=== PATIENT | female | born 1960 | race Caucasian/White ===

== ENCOUNTER 2019-01-05 22:36 | Emergency (ER) | payer MEDICAID, OTHER ==
[~2019-01-05] VITALS: Ht 162.6 cm; Wt 77.3 kg
[~2019-01-05 22:36] MED LIST: /HYDR1TAB PO; HYDR25T PO; LISI5TAB PO; MOM30SS FT; MOM30SS OR; SYNT25TA PO; ZEST20TA8 PO
[2019-01-05 22:37] VITALS: BP 157/78
[2019-01-05] MEDS ORDERED: VALA1TAB2 PO (23:47)
[2019-01-05] MEDS ORDERED: CLAR500T PO (23:47)
== END 2019-01-05 23:59 | disposition home or self-care (01) ==
LOC: M ED 22:36
DX: J06.9 Acute upper respiratory infection, unspecified (principal); B02.9 Zoster without complications; E07.9 Disorder of thyroid, unspecified; F17.210 Nicotine dependence, cigarettes, uncomplicated

== ENCOUNTER 2019-02-21 17:10 | Emergency (ER) | payer MEDICAID, OTHER ==
[~2019-02-21] VITALS: Ht 162.6 cm; Wt 77.3 kg
[~2019-02-21 17:10] MED LIST changes: +CLAR500T PO; +VALA1TAB2 PO
[2019-02-21 18:04] LABS: BASO # 0.1 10^3/uL (0.0-0.2); BASO % 0.7 % (0.0-1.0); EOS % 0.1 % (0.0-3.0); HEMATOCRIT 44.2 % (36.0-47.0); HEMOGLOBIN 15.6 g/dl (12.0-15.5); LYMPH # 2.1 10^3/uL (1.5-4.5); LYMPH % 28.7 % (24.0-44.0); MEAN CORPUSCULAR HEMOGLOBIN 30.8 pg (27.0-33.0); MEAN CORPUSCULAR HGB CONC 35.3 g/dl (32.0-36.5); MEAN CORPUSCULAR VOLUME 87.2 fl (80.0-96.0); MONO # 0.4 10^3/uL (0.0-0.8); NEUTROPHILS # 4.6 10^3/uL (1.8-7.7); NEUTROPHILS % 64.2 % (36.0-66.0); PLATELET COUNT, AUTOMATED 333 10^3/uL (150-450); RED BLOOD COUNT 5.07 10^6/uL (4.00-5.40); WHITE BLOOD COUNT 7.2 10^3/uL (4.0-10.0)
--- NOTE | 2019-02-21 18:15 | REP ---
Clinical: Wheezing. Technique: Complete sinus series (five views). Findings: Paranasal sinuses and mastoid air cells appear clear and without mucosal thickening or fluid level. Surrounding osseous structures are intact. Impression: Normal sinus radiograph series. Electronically Signed by Aydin Saucedo MD 02/21/2019 06:07 P
--- NOTE | 2019-02-21 18:17 | REP ---
Clinical: Shortness of breath with wheezing and rales. Technique: PA and lateral. Comparison: 12/01/2013. Findings: Mediastinum and cardiac silhouette are normal. Lung mix are clear. Lateral view suggests blunting of the posterior diaphragmatic angles raising the possibility of chronic change versus small pleural reaction. No pneumothorax. Skeletal structures intact. Impression: No focal consolidation or atelectasis. Cannot exclude small chronic versus acute pleural reaction. Electronically Signed by Aydin Saucedo MD 02/21/2019 06:09 P
[2019-02-21 18:26] LABS: ALBUMIN 4.3 GM/DL (3.2-5.2); ALT/SGPT 17 U/L (12-78); BILIRUBIN,TOTAL 0.5 MG/DL (0.2-1.0); BLOOD UREA NITROGEN 11 MG/DL (7-18); CALCIUM LEVEL 9.2 MG/DL (8.5-10.1); CARBON DIOXIDE LEVEL 24 MEQ/L (21-32); CHLORIDE LEVEL 104 MEQ/L (98-107); CK-MB VALUE MASS 1.7 NG/ML (<3.6); CPK CREATINE PHOSPHOKINASE 107 U/L (26-192); CREATININE FOR GFR 0.88 MG/DL (0.55-1.30); GLOMERULAR FILTRATION RATE > 60.0 (>51); GLUCOSE, FASTING 108 MG/DL (70-100); LIPASE 112 U/L (73-393); MB/CK RELATIVE INDEX 1.59 (< OR =4); POTASSIUM SERUM 3.7 MEQ/L (3.5-5.1); SODIUM LEVEL 135 MEQ/L (136-145); TOTAL PROTEIN 7.8 GM/DL (6.4-8.2); TROPONIN I < 0.02 NG/ML (< 0.10)
--- NOTE | 2019-02-21 18:58 | REP ---
Clinical: Hypertension . Comparison: 05/07/2011 . Findings: The ventricles, sulci, and cisterns are normal in position and appearance. Barker-white differentiation is maintained. No acute intracranial hemorrhage, mass/mass effect, pathology or trauma/injury. No evidence for acute infarction. No extra-axial fluid collection. Calvarium is intact. Paranasal sinuses and mastoid air cells are clear. Impression: Normal noncontrast head CT. No evidence for acute intracranial pathology or trauma/injury. Electronically Signed by Aydin Saucedo MD 02/21/2019 06:50 P
[2019-02-21] MEDS ORDERED: FLON1SPR NARES (19:27)
[2019-02-21] MEDS ORDERED: LISI-542 PO (19:27)
[2019-02-21 19:36] VITALS: BP 142/65
--- NOTE | 2019-02-22 13:31 | ED PDOC ---
Post-Departure Follow-Up certitifed letter sent to pt re formal reading of cxr see report. needs pcp fu. find out who pcp is and fax. if no pcp refer to [facility] and fax. Tressa Bales MD Feb 22, 2019 13:31
--- NOTE | 2019-02-22 21:53 | ECGEPIP ---
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
== END 2019-02-21 19:42 | disposition home or self-care (01) ==
LOC: M ED 17:10
DX: R03.0 Elevated blood-pressure reading, without diagnosis of hypertension (principal); R06.02 Shortness of breath; R51 Headache; M79.2 Neuralgia and neuritis, unspecified; J44.9 Chronic obstructive pulmonary disease, unspecified; Z79.899 Other long term (current) drug therapy; F17.210 Nicotine dependence, cigarettes, uncomplicated

== ENCOUNTER → 2019-03-10 | Outpatient (CLI) | payer OTHER ==
[~2019-03-10] MED LIST changes: +FLON1SPR NARES; +LISI-542 PO
--- NOTE | 2019-03-10 09:42 | REPMRS ---
Patient History The patient states she has not had a clinical breast exam in over a year. Family history of breast cancer in mother. Patient states she had a breast bx 2013-negative Digital Mammo Screening Bilat: March 10, 2019 - Exam #: [id number] Bilateral CC and MLO view(s) were taken. Technologist: Vaishali Le Technologist Prior study comparison: April 09, 2013, bilateral digital mammo screening bilat performed at [facility]. 2011, bilateral digital mammo screening bilat, performed at [facility]. FINDINGS: There are scattered fibroglandular densities. There is a needle biopsy marker clip projecting in the upper outer quadrant of the right breast unchanged. There has been no change in the appearance of the mammogram from the prior studies. There is a mild amount of scattered fibroglandular density which is fairly symmetric. There is no interval development of dominant mass, architectural distortion, or grouped microcalcification suggestive of malignancy. 3-D tomosynthesis shows no additional findings. Assessment: BI-RADS/ACR category 2 mammogram. Benign Findings. Recommendation Routine screening mammogram of both breasts in 1 year (for women over age 40). This patient's Lifetime Breast Cancer Risk is estimated at 13.0 %. This mammogram was interpreted with the aid of an FDA-approved computer-aided dectection system. Electronically Signed By: Trever Bose MD 03/10/19 0942
== END ==
LOC: M RAD 08:31
PROVIDERS: ATTEND Family Medicine
DX: Z12.31 Encounter for screening mammogram for malignant neoplasm of breast (principal)

== ENCOUNTER → 2019-03-25 | Outpatient (REF) | payer OTHER, MEDICAID ==
[2019-03-25 13:25] LABS: BASO # 0.1 10^3/uL (0.0-0.2); BASO % 0.7 % (0.0-1.0); HEMOGLOBIN 15.7 g/dl (12.0-15.5); LYMPH # 1.6 10^3/uL (1.5-4.5); LYMPH % 23.3 % (24.0-44.0); MEAN CORPUSCULAR HEMOGLOBIN 30.2 pg (27.0-33.0); MEAN CORPUSCULAR HGB CONC 34.1 g/dl (32.0-36.5); MEAN CORPUSCULAR VOLUME 88.5 fl (80.0-96.0); MONO # 0.4 10^3/uL (0.0-0.8); MONO % 6.1 % (0.0-5.0); NEUTROPHILS # 4.7 10^3/uL (1.8-7.7); NEUTROPHILS % 69.8 % (36.0-66.0); PLATELET COUNT, AUTOMATED 394 10^3/uL (150-450); WHITE BLOOD COUNT 6.7 10^3/uL (4.0-10.0)
[2019-03-25 13:49] LABS: ALT/SGPT 14 U/L (12-78); BILIRUBIN,TOTAL 0.3 MG/DL (0.2-1.0); BLOOD UREA NITROGEN 12 MG/DL (7-18); CALCIUM LEVEL 9.9 MG/DL (8.5-10.1); CARBON DIOXIDE LEVEL 28 MEQ/L (21-32); CHLORIDE LEVEL 103 MEQ/L (98-107); CHOLESTEROL LEVEL 288 MG/DL (<200); CHOLESTEROL RISK RATIO 8.228 (<5); CREATININE FOR GFR 0.89 MG/DL (0.55-1.30); FREE T4 0.83 NG/DL (0.76-1.46); GLOMERULAR FILTRATION RATE > 60.0 (>51); GLUCOSE, FASTING 95 MG/DL (70-100); HDL CHOLESTEROL 35 MG/DL (>40); LDL CHOLESTEROL 210 MG/DL (<100); NON-HDL-C 253 MG/DL; POTASSIUM SERUM 4.3 MEQ/L (3.5-5.1); SODIUM LEVEL 140 MEQ/L (136-145); TOTAL 25(OH) VITAMIN D 19.7 NG/ML (30.0-100.0); TOTAL PROTEIN 7.6 GM/DL (6.4-8.2); TRIGLYCERIDES LEVEL 213 MG/DL (<150)
[2019-03-25 14:36] LABS: HEMOGLOBIN A1c 6.1 %
[2019-03-27 00:06] LABS: Lyme Disease IgG/IgM Antibodie <0.91 ISR (0.00-0.90); Lyme Disease IgM Ab Quantitati <0.80 index (0.00-0.79)
== END ==
LOC: M LAB REF 12:17
PROVIDERS: ATTEND Family Medicine
DX: Z13.228 Encounter for screening for other metabolic disorders (principal)

== ENCOUNTER → 2019-06-24 | Outpatient (REF) | payer OTHER, MEDICAID ==
[2019-06-24 13:08] LABS: ALBUMIN 4.2 GM/DL (3.2-5.2); ALT/SGPT 18 U/L (12-78); BILIRUBIN,TOTAL 0.6 MG/DL (0.2-1.0); BLOOD UREA NITROGEN 10 MG/DL (7-18); CALCIUM LEVEL 9.9 MG/DL (8.5-10.1); CARBON DIOXIDE LEVEL 31 MEQ/L (21-32); CHLORIDE LEVEL 102 MEQ/L (98-107); CHOLESTEROL LEVEL 221 MG/DL (<200); CHOLESTEROL RISK RATIO 6.314 (<5); CREATININE FOR GFR 0.88 MG/DL (0.55-1.30); GLOMERULAR FILTRATION RATE > 60.0 (>51); GLUCOSE, FASTING 93 MG/DL (70-100); HDL CHOLESTEROL 35 MG/DL (>40); LDL CHOLESTEROL 144 MG/DL (<100); NON-HDL-C 186 MG/DL; POTASSIUM SERUM 4.8 MEQ/L (3.5-5.1); SODIUM LEVEL 136 MEQ/L (136-145); TOTAL PROTEIN 7.8 GM/DL (6.4-8.2); TRIGLYCERIDES LEVEL 210 MG/DL (<150)
[2019-06-24 14:34] LABS: HEMOGLOBIN A1c 5.6 %
== END ==
LOC: M LAB REF 12:18
PROVIDERS: ATTEND Family Medicine
DX: E78.5 Hyperlipidemia, unspecified (principal); R73.03 Prediabetes

== ENCOUNTER → 2019-07-26 | Outpatient (CLI) | payer OTHER ==
--- NOTE | 2019-07-26 11:04 | REP ---
Clinical: Lung screening. History smoking. Comparison: 05/07/2011 Technique: Axial low-dose noncontrast images from the thoracic inlet to the upper abdomen using lung screening technique. Findings: There is a 3 cm left lower lobe mass with spiculated margination most consistent with malignancy. No effusion. Partially calcified mediastinal lymph nodes are suspected. Impression: 3.3 cm left lower lobe spiculated mass lesion consistent with neoplasm. Partially calcified mediastinal adenopathy. Electronically Signed by Aydin Saucedo MD 07/26/2019 10:55 A
== END ==
LOC: M RAD 10:04
PROVIDERS: ATTEND Family Medicine
DX: Z12.2 Encounter for screening for malignant neoplasm of respiratory organs (principal); Z87.891 Personal history of nicotine dependence

== ENCOUNTER → 2019-09-10 | Outpatient (CLI) | payer OTHER ==
[~2019-09-10] MED LIST changes: +ATOR1TAB21 PO; +CETI10TA4 PO; +FLUT1INH2 INH; +IBUP200T45 PO; +LISI10TA4 PO; +NICOINH INH; +PARO20TA3 PO; +PROAAER10 INH; -VALA1TAB2 PO; +VALA1TAB64 PO; +VENTAER INH
--- NOTE | 2019-09-10 20:58 | REP ---
CT chest without contrast: History: Solitary pulmonary nodule. Comparison chest CT study is from July 26, 2019. This showed a spiculated 3.3 cm mass in the left lower lobe. CT findings: The CT study confirms the presence of a spiculated mass in a peribronchovascular position in the left lower lobe. This measures 3.5 by 2.7 by 1.9 cm. It is unchanged in appearance from July 26, 2019. There is a tiny subpleural left lower lobe nodule 4 mm in diameter in the lateral pleural angle visible on page 87 of 115 in series 201 of today's study. This is unchanged. There is a small pleural-based nodule in the right lateral pleural angle 4 mm in diameter, also unchanged from prior studies. No other pulmonary nodule is appreciated. There are mild emphysematous changes in the apices bilaterally. Normal adrenal glands are seen. The visualized upper abdominal structures are unremarkable. Vascular calcifications noted. There are calcified mediastinal lymph nodes in the central mediastinum. The largest of these is a precarinal node measuring 1.5 by 2.3 cm. There is left coronary artery vascular calcification. No bony destructive lesion. Impression: Suspicious spiculated mass in the left lower lobe again seen. There are multiple mediastinal lymph nodes which are calcified of uncertain significance. Bilateral upper lobe emphysematous changes are seen. Electronically Signed by Javier Bose MD 09/11/2019 08:00 A
== END ==
LOC: M RAD 14:07
PROVIDERS: ATTEND Internal Medicine Pulmonary Disease
DX: R91.1 Solitary pulmonary nodule (principal); R91.8 Other nonspecific abnormal finding of lung field

== ENCOUNTER → 2019-10-02 | Outpatient (CLI) | payer OTHER ==
[~2019-10-02] MED LIST changes: -CLAR500T PO; +CLAR500T97 PO; +VALA1TAB5 PO; -VALA1TAB64 PO
[2019-10-02 11:40] LABS: HEMATOCRIT 49.4 % (36.0-47.0); MEAN CORPUSCULAR HGB CONC 32.4 g/dl (32.0-36.5); MEAN CORPUSCULAR VOLUME 92.7 fl (80.0-96.0); PLATELET COUNT, AUTOMATED 386 10^3/uL (150-450); RED BLOOD COUNT 5.33 10^6/uL (4.00-5.40); WHITE BLOOD COUNT 6.9 10^3/uL (4.0-10.0)
[2019-10-02 12:07] LABS: BLOOD UREA NITROGEN 7 MG/DL (7-18); CALCIUM LEVEL 9.4 MG/DL (8.5-10.1); CARBON DIOXIDE LEVEL 29 MEQ/L (21-32); CHLORIDE LEVEL 105 MEQ/L (98-107); CREATININE FOR GFR 0.99 MG/DL (0.55-1.30); GLOMERULAR FILTRATION RATE > 60.0 (>51); GLUCOSE, FASTING 91 MG/DL (70-100); POTASSIUM SERUM 3.9 MEQ/L (3.5-5.1); SODIUM LEVEL 141 MEQ/L (136-145)
== END ==
LOC: M LAB 10:31
PROVIDERS: ATTEND Physician Assistant
DX: R94.31 Abnormal electrocardiogram [ECG] [EKG] (principal); R07.9 Chest pain, unspecified

== ENCOUNTER 2019-11-16 06:13 | Day surgery (SDC) | payer OTHER ==
[~2019-11-16] VITALS: Ht 162.6 cm; Wt 83.0 kg
[~2019-11-16 06:13] MED LIST changes: +ASPI81TA26 PO
[2019-11-16] MEDS ORDERED: LR 1,000 ML IV ONE (07:00)
[2019-11-16] MEDS ORDERED: propofoL 200 MG/20 ML VIAL As Ordered ONE (07:15)
[2019-11-16] MEDS ORDERED: LIDOCAINE 2% INJ 100 MG/5 ML SDV (FOR ANES.) As Ordered ONE (07:16)
[2019-11-16] MEDS ORDERED: ROCURONIUM BROMIDE 50 MG/5 ML VIAL As Ordered ONE (07:16)
[2019-11-16] MEDS ORDERED: ONDANSETRON 4MG/2ML VIAL (J2405) As Ordered ONE (07:17)
[2019-11-16] MEDS ORDERED: MIDAZOLAM INJ 2 MG/2 ML VIAL (J2250) As Ordered ONE (07:17)
[2019-11-16] MEDS ORDERED: dexameTHASONE 4 MG/ML 1ML VIAL (J1100) As Ordered ONE (07:17)
[2019-11-16] MEDS ORDERED: fentaNYL 100 MCG/2 ML INJECTION (J3010) As Ordered ONE ×2 (07:17→08:36)
[2019-11-16] MEDS ORDERED: LIDOCAINE 4% TOPICAL SOLN 50 ML BTL As Ordered ONE (07:19)
[2019-11-16] MEDS ORDERED: THROMBIN SOLN 20,000 UNITS KIT As Ordered ONE (07:19)
[2019-11-16] MEDS ORDERED: EPINEPHrine 1MG/10ML SYRINGE 1.5IN As Ordered ONE (07:19)
[2019-11-16] MEDS ORDERED: LIDOCAINE VISCOUS 2% SOLN 15ML UDC As Ordered ONE (07:19)
[2019-11-16] MEDS ORDERED: LIDOCAINE 1% SDV INJ 30 ML VIAL As Ordered ONE (07:19)
[2019-11-16] MEDS ORDERED: CETACAINE SPRAY 5GM As Ordered ONE (07:41)
[2019-11-16] MEDS ORDERED: SCOPOLAMINE 1MG TRANSDERMAL PATCH As Ordered ONE (07:53)
[2019-11-16] MEDS ORDERED: SCOPOLAMINE 1MG TRANSDERMAL PATCH TOP ONE (08:00)
[2019-11-16] MEDS ORDERED: SUGAMMADEX SODIUM 500 MG/5 ML VIAL (BRIDION) As Ordered ONE (08:23)
[2019-11-16] MEDS ORDERED: ACETAMINOPHEN 1000MG 100ML IV BTL (OFIRMEV) (J0131 PER 10MG) As Ordered ONE (08:23)
--- NOTE | 2019-11-16 09:24 | RO ---
DATE OF PROCEDURE: 11/16/2019 PREOPERATIVE DIAGNOSIS: Abnormal chest x-ray. POSTOPERATIVE DIAGNOSIS: Abnormal chest x-ray with chronic bronchitis and extrinsic compression of the left lower lobe subsegments. PROCEDURE: Fiberoptic bronchoscopy with endobronchial ultrasound with washes, brushes, biopsies and photos. SURGEON: Dr. Stas Mcneill LICENSED DISPENSING OPTICIAN: ANESTHESIA: General. CONSENT: Informed consent was obtained prior to the procedure. OPERATIVE FINDINGS: 1. Diffuse changes of chronic bronchitis. 2. Significant extrinsic compression of the posterior basilar segment of left lower lobe. DESCRIPTION OF PROCEDURE: After the patient identified and the above anesthesia given, the fiberoptic bronchoscope was easily passed via the existing endotracheal tube. It was found to be in good position. The right lung was entered first. All segments and sub segments of upper, middle and lower lobe easily identified and generally widely patent. Diffuse changes of chronic bronchitis were noted. The left lung was then entered. Upper and lower lobes easily identified. Proximal take off widely patent. Diffuse changes of chronic bronchitis were noted. In two of the sub segments of the left lower lobe, significant extrinsic compression was identified that was somewhat dynamic in nature. Due to this finding, the initial plan was for navigational bronchoscopy, but this was abandoned. Washes, brushes and biopsies of the area were taken. The endobronchial ultrasound was then employed. No good window for needle biopsy was able to be obtained via the use of that scope. That scope was then changed out to the standard bronchoscope. Again, multiple biopsies of the area in question were taken. Some bleeding was encountered that was easily controlled with topical saline lavage and topical thrombin. When adequate hemostasis was achieved, the scope was then withdrawn and the procedure terminated. Care was then turned over to anesthesia for extubation. No immediate complications of my portion of the procedure were identified.
[2019-11-16] MEDS ORDERED: LR 1,000 ML IV SCH (09:30)
[2019-11-16] MEDS ORDERED: MEPERIDINE INJ 25 MG/ML VIAL (J2175) IV PRN (09:30)
[2019-11-16] MEDS ORDERED: fentaNYL 100 MCG/2 ML INJECTION (J3010) IV PRN (09:30)
[2019-11-16] MEDS ORDERED: PERCOCET 5MG/325MG TAB PO PRN (09:30)
[2019-11-16] MEDS ORDERED: ONDANSETRON 4MG/2ML VIAL (J2405) IV PRN (09:30)
[2019-11-16] MEDS ORDERED: METOCLOPRAMIDE INJ 10MG/2ML VIAL (J2765) IV PRN (09:30)
[2019-11-16 10:25] VITALS: BP 134/65
== END 2019-11-16 10:25 | disposition home or self-care (01) ==
LOC: M SDC 06:13
PROVIDERS: ATTEND Internal Medicine Pulmonary Disease
DX: R91.1 Solitary pulmonary nodule (principal); J98.4 Other disorders of lung; J42 Unspecified chronic bronchitis; J45.30 Mild persistent asthma, uncomplicated; F17.218 Nicotine dependence, cigarettes, with other nicotine-induced disorders; I10 Essential (primary) hypertension; E78.5 Hyperlipidemia, unspecified; E03.9 Hypothyroidism, unspecified; F41.9 Anxiety disorder, unspecified; R53.83 Other fatigue; Z79.51 Long term (current) use of inhaled steroids; Z79.899 Other long term (current) drug therapy
CPT/HCPCS: 31623; 31624; 31652; 87070; 87116; 87205; 87206; 88104; 88305; J0131; J1100; J2250; J2405; J3010

== ENCOUNTER → 2019-12-07 | Outpatient (CLI) | payer OTHER ==
--- NOTE | 2019-12-09 12:04 | REP ---
PET/CT: HISTORY: Diagnosing lung carcinoma. COMPARISONS: Comparison CT study of the chest September 10, 2019. TECHNIQUE: 52 minutes following the intravenous injection of a 8.32 mCi dose of F-18 FDG, three-dimensional PET scintigraphy is acquired from the skull base to the proximal thighs. Triplanar noncontrast CT scanning is acquired through the same anatomic range for attenuation correction, and image registration with scan parameters optimized to minimize radiation exposure to the patient. PET scintigraphy and CT datasets were fused and displayed on a workstation with multiplanar and projection display capability. PET/CT FINDINGS: The patient's known spiculated left lower lobe lung mass is hypermetabolic. Maximum standard uptake value within this lesion is 10.42. There is an infiltrative opacity in the left lower lobe below the mass lesion suggesting postobstructive change. There is some hypermetabolic uptake in this presumed postobstructive parenchymal opacity, maximum standard uptake value 5.15. No other abnormal hypermetabolic uptake is seen in the pulmonary parenchyma. The previously noted calcified mediastinal adenopathy is also hypermetabolic. Maximum standard uptake value within these precarinal, subcarinal and left central hilar calcific adenopathy ranges from 4.29 to 6.36. Since a granulomatous disease such as sarcoidosis and show hypermetabolic uptake on PET/CT, the significance of this uptake in these calcified mediastinal lymph nodes is difficult to evaluate. There is no abnormal adrenal hypermetabolic uptake. No abnormal skeletal uptake is seen. No abnormal uptake is seen below the diaphragms. There is some scattered skeletal muscle hypermetabolic uptake which is felt to be normal variant. There is one possible focus of karthik uptake in the left neck in a normal-sized lymph node in the left supraclavicular region just posterior and lateral to the internal jugular vein. Maximum standard uptake value here is 4.44. This lymph node measures only 6 mm in short axis dimension. This is of uncertain significance as well. IMPRESSION: The known spiculated left lower lobe lung mass is hypermetabolic. There is hypermetabolic although calcific left central hilar, pretracheal and paratracheal adenopathy. These lymph nodes are difficult to evaluate since granulomatous disease such as sarcoidosis can show increased uptake on PET scintigraphy . There is an equivocal karthik focus in the left neck. Electronically Signed by Javier Bose MD 12/09/2019:13 P
== END ==
LOC: M PLARAD 08:24
PROVIDERS: ATTEND Internal Medicine Pulmonary Disease
DX: R91.1 Solitary pulmonary nodule (principal)
CPT/HCPCS: 78815; A9552

== ENCOUNTER → 2019-12-30 | Outpatient (CLI) | payer OTHER ==
[~2019-12-30] MED LIST changes: +LIDOCAINE 1% MDV 20ML VIAL As Ordered ONE; +MIDAZOLAM INJ 2MG/2ML VIAL (J2250 PER 1MG) As Ordered ONE; +PARO40TA2 PO; +VALI5TAB PO
[2019-12-30 10:29] LABS: PLATELET COUNT, AUTOMATED 322 10^3/uL (150-450)
[2019-12-30 10:41] LABS: INR 0.98; PROTHROMBIN TIME 12.7 SECONDS (11.8-14.0)
[2019-12-30 10:42] LABS: PARTIAL THROMBOPLASTIN TIME 27.4 SECONDS (25.0-38.4)
--- NOTE | 2019-12-30 12:15 | REP ---
CHEST, SINGLE VIEW: Single view of the chest is performed status post left lung biopsy. There is no significant pneumothorax. Left lower lobe mass is seen. Followup will be performed. Electronically Signed by Jimbo Barker MD 12/30/2019 12:57 P
[2019-12-30 13:36] VITALS: BP 128/71
--- NOTE | 2019-12-30 15:14 | REP ---
CHEST, SINGLE VIEW: Single view of the chest is performed 2 hours following left lung biopsy. There is no pneumothorax. Left lower lobe mass is again seen. There are mild bibasilar atelectatic changes. IMPRESSION: No pneumothorax status post lung biopsy. Electronically Signed by Jimbo Barker MD 12/30/2019 03:42 P
--- NOTE | 2019-12-30 15:49 | REP ---
CT-GUIDED LEFT LOWER LOBE LUNG BIOPSY The procedure was performed under the direct supervision of Dr. barker. The patient has a history of a left lower lobe lung mass seen on a previous CT scan dated 09/10/2019. This was shown to be hypermetabolic on a PET scan performed on 12/07/2019. The risks and benefits of the procedure were explained to the patient and informed consent was obtained. The left lower lobe lung mass was localized using CT guidance. The skin was prepped and draped in a sterile fashion. 1% lidocaine was used as a local anesthetic. Using CT guidance a 19/20 gauge coaxial needle biopsy system was inserted and advanced into the mass. Five core biopsy samples were obtained. Images obtained after biopsy show a small left pneumothorax. As much air as possible was aspirated from the pleural space. Follow-up images show improvement of the left pneumothorax. Chest x-ray performed immediately after this procedure shows no evidence of pneumothorax. Chest x-ray performed 2 hours later in shows no evidence of pneumothorax. The patient tolerated the procedure well. After the appropriate amount of monitored convalescence the patient was discharged from the department. Electronically Signed by ANGELA Laws 12/30/2019 01:48 P Electronically Signed by Jimbo Barker MD 12/30/2019 03:40 P
== END ==
LOC: M IRPRO 09:43
PROVIDERS: ATTEND Thoracic Surgery (Cardiothoracic Vascular Surgery)
DX: C34.32 Malignant neoplasm of lower lobe, left bronchus or lung (principal); J45.30 Mild persistent asthma, uncomplicated; F17.218 Nicotine dependence, cigarettes, with other nicotine-induced disorders; I10 Essential (primary) hypertension
CPT/HCPCS: 32405; 36415; 77012; 85027; 85610; 85730; 88305; J2250

== ENCOUNTER → 2020-01-20 | Outpatient (CLI) | payer OTHER ==
[~2020-01-20] MED LIST changes: -LIDOCAINE 1% MDV 20ML VIAL As Ordered ONE; -MIDAZOLAM INJ 2MG/2ML VIAL (J2250 PER 1MG) As Ordered ONE
--- NOTE | 2020-01-26 11:09 | RADONC ---
RADIATION ONCOLOGY CONSULTATION NOTE DATE: 01/20/2020 This is a telemedicine visit. The patient was informed of the risks including security breech, technological failure, inability to perform a comprehensive physical exam which could delay or prevent an accurate diagnosis, and potential complications from treatment decisions rendered over a telemedicine platform. The patient understands and consented to the use of telehealth services phone only. CHART NUMBER: [id number] DIAGNOSIS: Left lower lobe adenocarcinoma. STAGE: IV A, T2, N3, M1b, grade 3. ECOG PERFORMANCE STATUS: 0 CONSULTATION NOTE: Ms. Flores is a very pleasant 59-year-old female who is presenting to us today for telephone consultation regarding the possibility of external beam radiation therapy for her left lower lobe poorly differentiated adenocarcinoma. HISTORY OF PRESENT ILLNESS: The patient was in her usual state of health until low-dose lung cancer screening CT done in July 2019 revealed a 2.3 cm mass in the left lower lobe. She was subsequently referred to pulmonary, where a CT-guided biopsy was undertaken on 11/17/2019. This was nondiagnostic. On 12/30/2019, a repeat biopsy was undertaken and pathology revealed a poorly differentiated adenocarcinoma of the left lower lobe of the lung. A PET/CT scan was done on 12/07/2019. This revealed marked hypermetabolic uptake in the left lower lobe lung mass with an SUV value of 10.42. It was noted to be mediastinal adenopathy, which was also hypermetabolic in the precarinal, subcarinal, left central hilar region as well measuring between 4.29 SUV to 6.36. The lymph nodes were calcified in the mediastinal region however, and it is not absolutely clear whether or not this could be due to granulomatous disease. There was noted to be karthik uptake in the left neck in the supraclavicular/cervical region as well. In addition, there was uptake visible in the right first rib but this was not correlated with any visible destruction on CT scan image. The patient was seen by Dr. White for what was thought to be a stage III B versus stage IV poorly differentiated adenocarcinoma. He clearly stated that she was not a surgical candidate, which is clear, and therefore has referred her for possible radiation therapy and systemic therapy. Differential lung scan was undertaken and showed normal spirometry lung volumes and DLCO. The patient went for a second opinion to [facility] and it was recommended at that time to undertake ultrasound-guided biopsy of the supraclavicular lymph node and if that was nondiagnostic to perform EBUS guided biopsy of the mediastinal nodes since the mediastinal nodes were calcified and the uptake on PET could be due to an inflammatory condition. The patient is now here for further discussion. PAST MEDICAL HISTORY: The patient's past medical history is positive for prediabetes. She has a history of asthma and CAD. The patient had a hernia repair, a hysterectomy and ovarian tumor, and sections. ALLERGIES: The patient has NO KNOWN DRUG ALLERGIES. SOCIAL HISTORY: The patient has smoked one pack of cigarettes per day for 45 years. She does not abuse alcohol. FAMILY HISTORY: The patient's family history is positive for a mother with breast cancer and a paternal grandfather with lung cancer. REVIEW OF SYSTEMS: The patient's review of systems is positive for some shortness of breath and occasional cough and anxiety. It is otherwise noncontributory. Denies nausea, vomiting, fevers, chills, night sweats, diplopia, headaches, anxiety or depression, anorexia, weight loss, visual disturbances, chest pain, urinary or bowel difficulties, bone pain, or neurological problems. PHYSICAL EXAMINATION: Physical exam was deferred at this time as per COVID-19 precautions. This was a telephone consultation. ASSESSMENT: I had a lengthy discussion with this patient with regards to the possibilities of external beam radiation therapy as a therapeutic option. We discussed logistics of treatment planning, simulation and subsequent fractionated daily radiation treatments. I have reviewed the recommendations from the multidisciplinary thoracic oncology program (TTOP) and I do agree that it may be thurston to undertake biopsy either of the supraclavicular node region or the mediastinal nodes. This would be especially true as it would change our treatment mix and the toxicity of treatment significantly. If the lymph nodes are positive, then a radiation field can be undertaken, which would also incorporate the rib area. Since there is no obvious destruction in the rib region, I would not include that or treat that separately if we are dealing simply with stage T2 disease. I have personally reviewed the PET scan and do believe even if we are dealing with N3 disease we should be able to incorporate most of this area in treatment field while not compromising her overall breathing in the future too greatly. There appears to be no distant metastatic disease and therefore, it would be reasonable to incorporate all these areas in one field. I have set the patient up for referral for interventional radiology to discuss a supraclavicular lymph node biopsy. In addition, she has been set up to be seen by medical oncology as this would require concomitant systemic therapy with radiation therapy. We are setting her up for CT simulation and initiation of treatment planning as well. Further discussion and recommendations will be made pending the above. We will coordinate her care with medical oncology. Thank you for allowing us to participate in the care of this very pleasant woman. If I could be of any further assistance or provide you any information, please free to contact me anytime. As always, warm regards. cc: MD Kameron Kan MD Lawrence G. Kramer, MD Birendra Sah, MD, [facility]
== END ==
LOC: M ONCR 09:05
PROVIDERS: ATTEND Radiology Radiation Oncology
DX: C34.32 Malignant neoplasm of lower lobe, left bronchus or lung (principal)

== ENCOUNTER 2020-01-25 13:54 | Outpatient (RCR) | payer OTHER ==
--- NOTE | 2020-01-31 12:46 | RADONC ---
RADIATION ONCOLOGY SIMULATION NOTE DATE: 01/25/2020 CHART #: [id number] Ms. Flores was taken to the CT scan for CT simulation of her lung and lymph node mix. CT was accomplished without difficulty or discomfort. Radiation treatment planning is underway and radiation treatments will begin subsequently. An immobilization device was created without difficulty or discomfort. It will be used throughout the course of treatment. I was physically present throughout the course of CT simulation. I have ordered a needle biopsy of her supraclavicular lymph node as per Dr. White's recommendation. Although I feel somewhat certain that the lymph nodes are positive as is that rib, there is no evidence of erosive lesion on CT scan of the rib and she has a long history of chronic lung illnesses. For the sake of thoroughness however it would be good to pathologically confirm the presence of lymphadenopathy. Medical oncology consultation is scheduled to follow.
--- NOTE | 2020-02-08 18:44 | RADONC ---
RADIATION ONCOLOGY PROGRESS NOTE DATE: 02/05/2020 CHART NUMBER: [id number] DIAGNOSIS: Left lower lobe adenocarcinoma. STAGE: IV A, T2, N3, M1b, grade 3. ECOG PERFORMANCE STATUS: 0. PROGRESS NOTE: Ms. Flores presented to me with what appears to be stage IV A disease for discussion of radiation to all known sites of disease, including her primary left lower lobe lung cancer, her mediastinal lymph nodes, her supraclavicular and cervical lymph nodes and her contralateral possible rib metastases. Following her initial consultation, a biopsy was undertaken of her left supraclavicular region confirming positive malignancy. This makes her a minimum of a stage III B, more likely a stage IV A. We undertook simulation and treatment planning. In order to incorporate all areas of disease for this very pleasant and unfortunate woman, a prohibitive amount of lung and heart would be damaged. Indeed, she would lose more than 50% of her lung capacity. Of more concern, however, the majority of her heart would be in high-dose radiation field past tolerance limits. In light of the fact that she has a very advanced stage of disease, I think the benefits of treatment are minimal compared to the risks. In light of this work, I have spoken with the patient's medical oncologist, Dr. Wero Callaway MD, to discuss this case. We have decided it would be prudent to treat this patient initially with systemic therapy and then reevaluate for possible radiation therapy in the future if needed. I called the patient and spoke with her directly to let her know that at this time radiation most likely would be more detrimental to her than beneficial. I let her know that we have a plan for systemic therapy and indeed the patient is scheduled to see Dr. Callaway next week. In light of this, I am discharging this patient from my followup at this time. If radiation is indicated in the future, she will be referred back to this department.
== END 2020-02-22 ==
LOC: M ONCR 13:54
PROVIDERS: ATTEND Radiology Radiation Oncology
DX: C34.32 Malignant neoplasm of lower lobe, left bronchus or lung (principal)

== ENCOUNTER → 2020-02-02 | Outpatient (CLI) | payer OTHER ==
[~2020-02-02] MED LIST changes: +LIDOCAINE 1% MDV 20ML VIAL As Ordered ONE
[2020-02-02 14:16] VITALS: BP 176/81
--- NOTE | 2020-02-02 21:45 | REP ---
ULTRASOUND-GUIDED LEFT SUPRACLAVICULAR LYMPH NODE BIOPSY The procedure was performed under the direct supervision of Dr. Barker. The patient has a history of A possible focus of karthik uptake in the left neck in a normal-sized lymph node in the left supraclavicular region seen on a previous PET scan dated 12/07/2019. The risks and benefits of the procedure were explained to the patient and informed consent was obtained. The left supraclavicular lymph node was localized using ultrasound guidance. The skin was prepped and draped in a sterile fashion. 1% lidocaine was used as a local anesthetic. Using ultrasound guidance four fine-needle aspirations were obtained using 25 gauge needles. The patient tolerated the procedure well and there were no immediate complications. After the appropriate amount of monitored convalescence the patient was discharged from the department. Electronically Signed by ANGELA Laws 02/02/2020 03:45 P Electronically Signed by Jimbo Barker MD 02/02/2020 09:37 P
== END ==
LOC: M IRPRO 12:51
PROVIDERS: ATTEND Radiology Radiation Oncology
DX: C77.1 Secondary and unspecified malignant neoplasm of intrathoracic lymph nodes (principal); C34.82 Malignant neoplasm of overlapping sites of left bronchus and lung

== ENCOUNTER → 2020-04-26 | Outpatient (CLI) | payer OTHER ==
[~2020-04-26] MED LIST changes: -LIDOCAINE 1% MDV 20ML VIAL As Ordered ONE
--- NOTE | 2020-05-16 12:20 | ECGEPIP ---
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
== END ==
LOC: M EKG 11:52
PROVIDERS: ATTEND Specialist
DX: C34.92 Malignant neoplasm of unspecified part of left bronchus or lung (principal)

== ENCOUNTER → 2020-09-04 | Outpatient (CLI) | payer OTHER ==
[~2020-09-04] MED LIST changes: +ATOR40TA75 PO; +ISOVUE-370 76% 100ML VIAL As Ordered ONE
--- NOTE | 2020-09-04 14:31 | REP ---
INDICATION: NSCLC COMPARISON: 09/10/2019 TECHNIQUE: Axial contrast enhanced images from the thoracic inlet to the upper abdomen with coronal and sagittal reformations using 75 ml Isovue 370 intravenous contrast material. This CT examination was performed using the following dose reduction techniques: Automated exposure control, adjustment of mA and/or kv according to the patient's size, and use of iterative reconstruction technique. FINDINGS: The previously identified left lower lobe mass may now possibly measure approximately 10 mm and demonstrate adjacent linear scarring (mass previously measuring greater than 3.4 cm diameter at the same level). Partially calcified mediastinal lymph nodes have also decreased in size to relatively normal appearance. The remainder lung mix demonstrate chronic stable emphysematous changes with bronchiectasis and minimal scattered scarring. No further new acute suspicious consolidation nodule or mass. No effusion. No pneumothorax. Further evaluation of the mediastinum demonstrates stable appearance to the thoracic aorta, pulmonary vasculature and heart/pericardium. No aortic aneurysm or dissection. No cardiomegaly or significant pericardial effusion. Surrounding osseous structures demonstrate age-related changes without acute osseous abnormality. Limited upper abdomen demonstrates normal bilateral adrenal glands. IMPRESSION: 1. Left lower lobe mass has significantly regressed and there now appears to be a small [address] its place with adjacent linear scarring. Previously noted enlarged partially calcified mediastinal lymph nodes have also regressed to normal size. 2. No new acute mediastinal or pleuroparenchymal process appreciated. <Electronically signed by Aydin Saucedo > 09/04/20 [id number]
== END ==
LOC: M RAD 13:19
PROVIDERS: ATTEND Specialist
DX: C34.92 Malignant neoplasm of unspecified part of left bronchus or lung (principal)
CPT/HCPCS: 71260; Q9967

== ENCOUNTER → 2020-09-27 | Outpatient (CLI) | payer OTHER ==
[~2020-09-27] MED LIST changes: -ISOVUE-370 76% 100ML VIAL As Ordered ONE
--- NOTE | 2020-09-27 22:34 | ECGEPIP ---
[facility] Test Date: 2020-09-27 Pat Name: SHIREEN VIEIRA Department: Room: - Gender: Female Size Stamper: : 1960 Requested By: BRENDA Sorto Order Number: [id number] Reading MD: Sandor Unger Measurements Intervals [place] Rate: 64 P: 67 IA: 160 QRS: -4 QRSD: 92 T: 59 QT: 422 QTc: 435 Interpretive Statements Normal sinus rhythm Leftward axis. Improved repolarization compared with . Electronically Signed on 09-27-2020 22:34:10 EST by Sandor Unger
== END ==
LOC: M EKG 13:59
PROVIDERS: ATTEND Specialist
DX: C34.92 Malignant neoplasm of unspecified part of left bronchus or lung (principal)

== ENCOUNTER → 2020-10-10 | Outpatient (CLI) | payer OTHER ==
[~2020-10-10] MED LIST changes: -LISI-542 PO; +LISI-898 PO; +LISI10TA22 PO; -LISI10TA4 PO
[2020-10-10 11:03] LABS: BASO # 0.1 10^3/uL (0.0-0.2); BASO % 0.7 % (0.0-1.0); EOS # 0.5 10^3/uL (0.0-0.5); EOS % 5.2 % (0.0-3.0); HEMATOCRIT 41.6 % (36.0-47.0); HEMOGLOBIN 13.8 g/dl (12.0-15.5); LYMPH # 1.6 10^3/uL (1.5-5.0); LYMPH % 17.3 % (24.0-44.0); MEAN CORPUSCULAR HEMOGLOBIN 29.7 pg (27.0-33.0); MEAN CORPUSCULAR HGB CONC 33.2 g/dl (32.0-36.5); MEAN CORPUSCULAR VOLUME 89.7 fl (80.0-96.0); MONO # 0.8 10^3/uL (0.0-0.8); MONO % 8.7 % (2.0-8.0); NEUTROPHILS # 6.2 10^3/uL (1.5-8.5); NEUTROPHILS % 67.4 % (36.0-66.0); PLATELET COUNT, AUTOMATED 512 10^3/uL (150-450); RED BLOOD COUNT 4.64 10^6/uL (4.00-5.40); WHITE BLOOD COUNT 9.2 10^3/uL (4.0-10.0)
[2020-10-10 11:18] LABS: HEMOGLOBIN A1c 5.6 %
[2020-10-10 12:08] LABS: ALBUMIN 3.5 GM/DL (3.2-5.2); ALT/SGPT 32 U/L (12-78); BILIRUBIN,TOTAL 0.2 MG/DL (0.2-1.0); BLOOD UREA NITROGEN 8 MG/DL (7-18); CALCIUM LEVEL 8.9 MG/DL (8.5-10.1); CARBON DIOXIDE LEVEL 30 MEQ/L (21-32); CHLORIDE LEVEL 97 MEQ/L (98-107); CHOLESTEROL LEVEL 119 MG/DL (<200); CHOLESTEROL RISK RATIO 3.838 (<5); GLOMERULAR FILTRATION RATE > 60.0 (>51); GLUCOSE, FASTING 94 MG/DL (70-100); HDL CHOLESTEROL 31 MG/DL (>40); LDL CHOLESTEROL 68 MG/DL (<100); NON-HDL-C 88 MG/DL; POTASSIUM SERUM 4.9 MEQ/L (3.5-5.1); SODIUM LEVEL 135 MEQ/L (136-145); TOTAL PROTEIN 6.7 GM/DL (6.4-8.2); TRIGLYCERIDES LEVEL 102 MG/DL (<150)
== END ==
LOC: M LAB 10:29
PROVIDERS: ATTEND Physician Assistant
DX: E78.5 Hyperlipidemia, unspecified (principal)

== ENCOUNTER → 2021-02-28 | Outpatient (CLI) | payer OTHER ==
[~2021-02-28] MED LIST changes: +ISOVUE-370 76% 100ML VIAL As Ordered ONE; +MULT1TAB7 PO
--- NOTE | 2021-02-28 16:06 | REP ---
INDICATION: LUNG CA FOLLOW UP COMPARISON: 09/04/2020 TECHNIQUE: Axial contrast enhanced images from the thoracic inlet to the upper abdomen with coronal and sagittal reformations using 75 ml Isovue 370 intravenous contrast material. This CT examination was performed using the following dose reduction techniques: Automated exposure control, adjustment of mA and/or kv according to the patient's size, and use of iterative reconstruction technique. FINDINGS: Most recent prior examination demonstrated a 10 mm residual peribronchial lesion in the left lower lobe with adjacent platelike scarring. The nodule itself has continued to regress and is essentially non visualized on the current examination with stable adjacent platelike scarring again noted. The bilateral lung mix demonstrate chronic emphysematous changes without consolidation, new nodule or mass lesion. No effusion. No pneumothorax. Tracheobronchial tree is patent. Calcified mediastinal and hilar lymph nodes remain stable and no significant adenopathy is otherwise identified. Thoracic aorta, pulmonary vasculature, and heart/pericardium are relatively stable. Atherosclerotic changes of the aorta and coronary arteries again noted. No cardiomegaly or pericardial effusion. Surrounding musculoskeletal structures are intact and without acute osseous abnormality. IMPRESSION: 1. Previously noted left lower lobe mass appears to have completely regressed. Linear platelike scarring remains stable, and no new suspicious nodule or mass lesion is identified. 2. Stable chronic changes including emphysematous disease and calcified lymph nodes suggesting prior granulomatous disease. <Electronically signed by Aydin Saucedo > 02/28/21 [id number]
--- NOTE | 2021-02-28 17:58 | REP ---
INDICATION: LUNG CA FOLLOW UP. COMPARISON: Comparison is made with PET-CT study dated December 07, 2019. On February 02, 2020 patient underwent ultrasound-guided fine needle aspiration biopsy of left supraclavicular lymph node.. TECHNIQUE: Helical scanning is acquired following the intravenous injection of 75 mL of Isovue 370. 3 mm axial images re-formatted. Coronal and sagittal MPR images are generated. FINDINGS: Parotid and submandibular glands are normal and symmetric. Thyroid lobes are homogeneous and symmetric. The lung apices are clear. No bony destructive lesion is appreciated. There are some degenerative spondylosis changes in the cervical spine. There are tonsillar crypt calcifications noted bilaterally. Tonsillar and peritonsillar soft tissues are otherwise unremarkable. There is mucosal thickening and mucoid material in the right maxillary sinus. No intraorbital abnormality is seen. There is no evidence of suprahyoid or in fibroid adenopathy on either side. No supraclavicular adenopathy is appreciated. No vascular abnormality is seen. The left internal jugular vein is larger than its right-sided counterpart which is normal variant. IMPRESSION: No evidence of mass or adenopathy. <Electronically signed by Trever Bose > 02/28/21 [id number]
== END ==
LOC: M RAD 15:01
PROVIDERS: ATTEND Specialist
DX: C34.92 Malignant neoplasm of unspecified part of left bronchus or lung (principal); J43.9 Emphysema, unspecified
CPT/HCPCS: 70491; 71260; Q9967

== ENCOUNTER 2021-10-25 07:39 | Inpatient (IN) | payer OTHER ==
[~2021-10-25] VITALS: Ht 161.9 cm; Wt 61.8 kg
[~2021-10-25 07:39] MED LIST changes: -IBUP200T45 PO; +IBUP200T46 PO; -ISOVUE-370 76% 100ML VIAL As Ordered ONE; -LISI-898 PO; +LISI5TAB11 PO; +POTA-151 PO; +[UNRECOGNIZED DRUG - CODE]; +[UNRECOGNIZED DRUG - CODE] PO
[2021-10-25 08:12] LABS: BASO % 0.2 % (0.0-1.0); HEMOGLOBIN 11.7 g/dl (12.0-15.5); LYMPH # 0.9 10^3/uL (1.5-5.0); MEAN CORPUSCULAR HEMOGLOBIN 28.4 pg (27.0-33.0); MEAN CORPUSCULAR HGB CONC 34.4 g/dl (32.0-36.5); MEAN CORPUSCULAR VOLUME 82.5 fl (80.0-96.0); MONO % 8.3 % (2.0-8.0); NEUTROPHILS # 10.3 10^3/uL (1.5-8.5); NEUTROPHILS % 83.6 % (36.0-66.0); PLATELET COUNT, AUTOMATED 398 10^3/uL (150-450); RED BLOOD COUNT 4.12 10^6/uL (4.00-5.40); WHITE BLOOD COUNT 12.4 10^3/uL (4.0-10.0)
[2021-10-25 08:49] LABS: ALBUMIN 1.6 GM/DL (3.2-5.2); ALT/SGPT 50 U/L (12-78); BILIRUBIN,DIRECT 0.2 MG/DL (0.0-0.2); BILIRUBIN,TOTAL 0.7 MG/DL (0.2-1.0); BLOOD UREA NITROGEN 15 MG/DL (7-18); CALCIUM LEVEL 7.7 MG/DL (8.8-10.2); CARBON DIOXIDE LEVEL 27 MEQ/L (21-32); CHLORIDE LEVEL 88 MEQ/L (98-107); CREATININE FOR GFR 0.81 MG/DL (0.55-1.30); GLOMERULAR FILTRATION RATE > 60.0 (>45); GLUCOSE, FASTING 125 MG/DL (70-100); NT-PRO BNP 5267 PG/ML (<125); POTASSIUM SERUM 3.4 MEQ/L (3.5-5.1); SODIUM LEVEL 127 MEQ/L (136-145); TOTAL PROTEIN 5.8 GM/DL (6.4-8.2)
[2021-10-25] MEDS ORDERED: FUROSEMIDE 40MG/4ML VIAL (J1940) IV ONE (08:55)
[2021-10-25] MEDS ORDERED: ISOVUE-370 76% 100ML VIAL As Ordered ONE (09:03)
[2021-10-25] MEDS ORDERED: HOME MED LIST COMPLETE! XX SCH (10:50)
[2021-10-25] MEDS ORDERED: MAALOX 30 ML SUSP *UDC PO PRN (12:00)
[2021-10-25] MEDS ORDERED: HEPARIN SOD (PORCINE) 5000UNITS/ML 1ML VIAL/SYRINGE SC SCH (12:00)
[2021-10-25] MEDS ORDERED: ALBUTEROL SULFATE 2.5 MG/0.5 ML INH NEB SOLN NEB PRN (12:35)
[2021-10-25 15:18] LABS: OSMOLALITY SERUM 261 MOSM/KG (280-301)
[2021-10-25] MEDS: ADVAIR HFA 115/21MCG INHALER INH SCH ×2 (15:30→20:25)
[2021-10-25] MEDS: ACETAMINOPHEN TAB 650MG DOSE (2X325MG) PO PRN ×2 (15:47→20:55)
[2021-10-25] MEDS: KETOROLAC 30 MG/ML 1ML VIAL IV PRN ×2 (16:47→20:55)
[2021-10-25 17:37] LABS: ABG BASE EXCESS 9.9 (-2.0-2.0); ABG HCO3 32.9 MEQ/L (22.0-26.0); ABG O2 SATURATION 84.9 % (95.0-99.0); ABG PARTIAL PRESSURE CO2 38.5 mmHg (35.0-45.0); ABG STANDARD HCO3 33.3 MEQ/L (22.0-26.0); ABG TOTAL CO2 34.1 MEQ/L (23.0-31.0)
[2021-10-25 18:22] VITALS: BP 125/60; O2SAT 92
[2021-10-25] MEDS: DOCUSATE SODIUM 100MG CAPSULE PO SCH ×2 (18:28→20:41)
[2021-10-25 18:30] VITALS: O2SAT 84
[2021-10-25 18:40] VITALS: O2SAT 77
[2021-10-25 18:46] VITALS: O2SAT 89
[2021-10-25 20:00] VITALS: BP 104/58
[2021-10-25] MEDS: traMADol 50 MG TAB PO PRN (20:49)
[2021-10-25] MEDS ORDERED: FLUTICASONE HFA 220 MCG 12 GM INHALER (FLOVENT) INH SCH (21:00)
[2021-10-26] VITALS (22 sets, daily range): BP systolic 78–116; BP diastolic 46–58; O2SAT 85–98
[2021-10-26] MEDS: traMADol 50 MG TAB PO PRN ×2 (00:16→06:22)
[2021-10-26] MEDS: ACETAMINOPHEN TAB 650MG DOSE (2X325MG) PO PRN (00:16)
[2021-10-26] MEDS ORDERED: hydrOXYzine 10 MG TAB PO ONE (01:40)
[2021-10-26] MEDS: KETOROLAC 30 MG/ML 1ML VIAL IV PRN ×3 (03:21→23:10)
[2021-10-26] MEDS ORDERED: NS 250 ML IV ONE (05:15)
[2021-10-26] MEDS: ENOXAPARIN 40MG/0.4ML SYRINGE (J1650 PER 10MG) SC SCH (07:44)
[2021-10-26] MEDS: DOCUSATE SODIUM 100MG CAPSULE PO SCH ×2 (07:45→20:22)
[2021-10-26] MEDS: ADVAIR HFA 115/21MCG INHALER INH SCH ×2 (08:05→19:51)
[2021-10-26] MEDS ORDERED: SODIUM CHLORIDE 0.9% 1000ML IV STA (08:11)
[2021-10-26] MEDS ORDERED: NS 500 ML IV ONE (11:55)
[2021-10-26 12:41] LABS: BASO % 0.5 % (0.0-1.0); EOS # 0.4 10^3/uL (0.0-0.5); EOS % 7.2 % (0.0-3.0); HEMOGLOBIN 11.1 g/dl (12.0-15.5); LYMPH # 0.9 10^3/uL (1.5-5.0); LYMPH % 14.1 % (24.0-44.0); MEAN CORPUSCULAR HGB CONC 33.6 g/dl (32.0-36.5); MEAN CORPUSCULAR VOLUME 83.1 fl (80.0-96.0); MONO # 0.3 10^3/uL (0.0-0.8); MONO % 4.8 % (2.0-8.0); NEUTROPHILS # 4.4 10^3/uL (1.5-8.5); NEUTROPHILS % 72.4 % (36.0-66.0); PLATELET COUNT, AUTOMATED 328 10^3/uL (150-450); RED BLOOD COUNT 3.97 10^6/uL (4.00-5.40)
[2021-10-26] MEDS: NS 1,000 ML IV SCH ×2 (13:11→19:06)
[2021-10-26 13:31] LABS: CALCIUM LEVEL 8.1 MG/DL (8.8-10.2); CREATININE FOR GFR 1.02 MG/DL (0.55-1.30); GLOMERULAR FILTRATION RATE 58.7 (>45); POTASSIUM SERUM 2.8 MEQ/L (3.5-5.1)
[2021-10-26] MEDS ORDERED: POTASSIUM CHLORIDE 10% LIQ 20 MEQ/15 ML UDC PO ONE (13:35)
[2021-10-26] MEDS: KCL 10MEQ/100ML SWI (KRUN) 10 MEQ in IV 1 EA IV SCH ×2 (15:01→16:45)
[2021-10-26 18:54] LABS: CALCIUM LEVEL 7.9 MG/DL (8.8-10.2); CREATININE FOR GFR 1.01 MG/DL (0.55-1.30); GLOMERULAR FILTRATION RATE 59.3 (>45); POTASSIUM SERUM 4.2 MEQ/L (3.5-5.1)
[2021-10-27] VITALS (16 sets, daily range): BP systolic 100–160; BP diastolic 50–107; O2SAT 87–97
[2021-10-27] MEDS ORDERED: ALBUTEROL 90 MCG/ACT 8GM HFA INHALER INH PRN (00:05)
[2021-10-27] MEDS: NS 1,000 ML IV SCH (00:18)
[2021-10-27] MEDS: ALBUTEROL SULFATE 2.5 MG/0.5 ML INH NEB SOLN NEB SCH ×7 (00:25→23:48)
[2021-10-27] MEDS ORDERED: hydrOXYzine 10 MG TAB PO ONE (01:25)
[2021-10-27] MEDS ORDERED: hydrOXYzine 25 MG TAB PO ONE (01:30)
[2021-10-27] MEDS ORDERED: methylPREDNISolone 125MG 2ML VIAL IV ONE (02:00)
[2021-10-27] MEDS: FUROSEMIDE 20MG/2ML VIAL (J1940) IV SCH ×2 (02:20→09:20)
[2021-10-27 02:39] LABS: ABG BASE EXCESS 3.4 (-2.0-2.0); ABG HCO3 27.6 MEQ/L (22.0-26.0); ABG O2 SATURATION 99.6 % (95.0-99.0); ABG PARTIAL PRESSURE O2 235.9 mmHg (75.0-100.0); ABG STANDARD HCO3 27.6 MEQ/L (22.0-26.0); ABG TOTAL CO2 28.8 MEQ/L (23.0-31.0); ABG pH (ARTERIAL) 7.456 UNITS (7.350-7.450)
[2021-10-27] MEDS: PIPERACILLIN/TAZOBACTAM SOD 3.375 GM in D5W MINI-BAG PLUS 50 ML IV SCH ×4 (03:20→21:33)
[2021-10-27 03:21] LABS: BASO % 0.5 % (0.0-1.0); EOS # 0.3 10^3/uL (0.0-0.5); EOS % 5.8 % (0.0-3.0); HEMATOCRIT 39.4 % (36.0-47.0); HEMOGLOBIN 12.4 g/dl (12.0-15.5); LYMPH # 0.5 10^3/uL (1.5-5.0); LYMPH % 8.9 % (24.0-44.0); MEAN CORPUSCULAR HEMOGLOBIN 28.1 pg (27.0-33.0); MEAN CORPUSCULAR HGB CONC 31.5 g/dl (32.0-36.5); MEAN CORPUSCULAR VOLUME 89.1 fl (80.0-96.0); MONO # 0.3 10^3/uL (0.0-0.8); MONO % 5.8 % (2.0-8.0); NEUTROPHILS # 4.5 10^3/uL (1.5-8.5); NEUTROPHILS % 78.1 % (36.0-66.0); PLATELET COUNT, AUTOMATED 294 10^3/uL (150-450); RED BLOOD COUNT 4.42 10^6/uL (4.00-5.40); WHITE BLOOD COUNT 5.7 10^3/uL (4.0-10.0)
[2021-10-27] MEDS: traMADol 50 MG TAB PO PRN ×2 (04:14→15:05)
[2021-10-27] MEDS ORDERED: REMDESIVIR 200 MG in NS 250 ML IV ONE (05:00)
[2021-10-27] MEDS: KETOROLAC 30 MG/ML 1ML VIAL IV PRN (05:21)
[2021-10-27 05:37] LABS: PROTHROMBIN TIME 16.6 SECONDS (12.7-14.5)
[2021-10-27 05:38] LABS: FIBRINOGEN 589 MG/DL (268-480); PARTIAL THROMBOPLASTIN TIME 38.3 SECONDS (25.9-37.0)
[2021-10-27 05:57] LABS: ALBUMIN 1.7 GM/DL (3.2-5.2); ALT/SGPT 69 U/L (12-78); BILIRUBIN,DIRECT 0.4 MG/DL (0.0-0.2); BILIRUBIN,TOTAL 0.8 MG/DL (0.2-1.0); BLOOD UREA NITROGEN 15 MG/DL (7-18); CALCIUM LEVEL 7.7 MG/DL (8.8-10.2); CARBON DIOXIDE LEVEL 33 MEQ/L (21-32); CHLORIDE LEVEL 92 MEQ/L (98-107); CREATININE FOR GFR 0.74 MG/DL (0.55-1.30); FERRITIN 2349 NG/ML (8-252); GLOMERULAR FILTRATION RATE > 60.0 (>45); GLUCOSE, FASTING 133 MG/DL (70-100); LDH LACTATE DEHYDROGENASE 936 U/L (84-246); MAGNESIUM LEVEL 1.7 MG/DL (1.8-2.4); NT-PRO BNP 5516 PG/ML (<125); POTASSIUM SERUM 3.8 MEQ/L (3.5-5.1); SODIUM LEVEL 130 MEQ/L (136-145); TOTAL PROTEIN 5.9 GM/DL (6.4-8.2)
[2021-10-27 06:04] LABS: D-DIMER QUANT > 4000 ng/ml (<500)
[2021-10-27] MEDS ORDERED: SODIUM CHLORIDE 0.9% INJ 10 ML SYR IV ONE (07:00)
[2021-10-27] MEDS: ADVAIR HFA 115/21MCG INHALER INH SCH ×2 (08:22→19:40)
[2021-10-27] MEDS ORDERED: MAG SULF 1GM/100ML (MAG RUN) 1 GM in IV 1 EA IV ONE (09:00)
[2021-10-27] MEDS: BARICITINIB 2MG TABLET (OLUMIANT) FOR EUA PO SCH (09:19)
[2021-10-27] MEDS: guaiFENesin ER 600 MG TAB PO SCH ×2 (09:19→21:00)
[2021-10-27] MEDS: ENOXAPARIN 40MG/0.4ML SYRINGE (J1650 PER 10MG) SC SCH ×2 (09:19→21:00)
[2021-10-27] MEDS: DOCUSATE SODIUM 100MG CAPSULE PO SCH ×2 (09:19→21:33)
[2021-10-27] MEDS: dexameTHASONE 4 MG/ML 1ML VIAL (J1100 PER 1MG) IV SCH (09:20)
[2021-10-27] MEDS: hydrOXYzine 10 MG TAB PO PRN (15:04)
[2021-10-27 22:31] LABS: ABG BASE EXCESS 8.6 (-2.0-2.0); ABG HCO3 31.8 MEQ/L (22.0-26.0); ABG O2 SATURATION 99.3 % (95.0-99.0); ABG PARTIAL PRESSURE CO2 38.6 mmHg (35.0-45.0); ABG PARTIAL PRESSURE O2 183.8 mmHg (75.0-100.0); ABG STANDARD HCO3 32.4 MEQ/L (22.0-26.0); ABG pH (ARTERIAL) 7.534 UNITS (7.350-7.450)
[2021-10-28] VITALS (44 sets, daily range): BP systolic 79–150; BP diastolic 50–81
[2021-10-28] MEDS: hydrOXYzine 10 MG TAB PO PRN (01:30)
[2021-10-28] MEDS: PIPERACILLIN/TAZOBACTAM SOD 3.375 GM in D5W MINI-BAG PLUS 50 ML IV SCH ×4 (03:27→21:05)
[2021-10-28] MEDS: traMADol 50 MG TAB PO PRN (03:28)
[2021-10-28] MEDS: ALBUTEROL SULFATE 2.5 MG/0.5 ML INH NEB SOLN NEB SCH ×5 (03:35→19:52)
[2021-10-28] MEDS: REMDESIVIR 100 MG in NS 250 ML IV SCH (04:44)
[2021-10-28] MEDS: SODIUM CHLORIDE 0.9% INJ 10 ML SYR IV SCH (05:30)
[2021-10-28 06:59] LABS: BASO % 0.2 % (0.0-1.0); HEMATOCRIT 30.6 % (36.0-47.0); LYMPH % 11.9 % (24.0-44.0); MEAN CORPUSCULAR HEMOGLOBIN 28.2 pg (27.0-33.0); MEAN CORPUSCULAR HGB CONC 33.3 g/dl (32.0-36.5); MEAN CORPUSCULAR VOLUME 84.5 fl (80.0-96.0); MONO # 0.6 10^3/uL (0.0-0.8); MONO % 6.8 % (2.0-8.0); NEUTROPHILS # 6.6 10^3/uL (1.5-8.5); NEUTROPHILS % 80.1 % (36.0-66.0); PLATELET COUNT, AUTOMATED 381 10^3/uL (150-450); RED BLOOD COUNT 3.62 10^6/uL (4.00-5.40); WHITE BLOOD COUNT 8.2 10^3/uL (4.0-10.0)
[2021-10-28 07:11] LABS: HEMOGLOBIN 10.2 g/dl (12.0-15.5)
[2021-10-28 07:21] LABS: ALBUMIN 1.5 GM/DL (3.2-5.2); ALT/SGPT 70 U/L (12-78); BILIRUBIN,DIRECT 0.2 MG/DL (0.0-0.2); BILIRUBIN,TOTAL 0.5 MG/DL (0.2-1.0); BLOOD UREA NITROGEN 20 MG/DL (7-18); CALCIUM LEVEL 8.2 MG/DL (8.8-10.2); CARBON DIOXIDE LEVEL 34 MEQ/L (21-32); CHLORIDE LEVEL 92 MEQ/L (98-107); CREATININE FOR GFR 0.67 MG/DL (0.55-1.30); GLOMERULAR FILTRATION RATE > 60.0 (>45); GLUCOSE, FASTING 112 MG/DL (70-100); POTASSIUM SERUM 3.1 MEQ/L (3.5-5.1); SODIUM LEVEL 133 MEQ/L (136-145); TOTAL PROTEIN 5.6 GM/DL (6.4-8.2)
[2021-10-28] MEDS: ADVAIR HFA 115/21MCG INHALER INH SCH ×2 (08:30→19:53)
[2021-10-28] MEDS ORDERED: PROPOFOL 1,000 MG/100 ML VIAL As Ordered ONE ×2 (08:49→12:01)
[2021-10-28] MEDS ORDERED: POTASSIUM CHLORIDE 10MEQ SR TABLET PO ONE (09:00)
[2021-10-28] MEDS ORDERED: ETOMIDATE INJ 20MG/10ML VIAL IV ONE (09:00)
[2021-10-28] MEDS ORDERED: fentaNYL 100 MCG/2 ML INJECTION As Ordered ONE (11:01)
[2021-10-28] MEDS ORDERED: fentaNYL 100 MCG/2 ML INJECTION IV ONE (11:15)
[2021-10-28] MEDS ORDERED: MIDAZOLAM INJ 2MG/2ML VIAL (J2250 PER 1MG) As Ordered ONE (11:49)
[2021-10-28] MEDS ORDERED: MIDAZOLAM INJ 2MG/2ML VIAL (J2250 PER 1MG) IV PRN (11:50)
[2021-10-28] MEDS ORDERED: NOREPINEPHRINE BITARTRATE 8 MG in D5W 492 ML IV SCH (11:50)
[2021-10-28] MEDS: propofoL 1,000 MG in IV 1 EA IV SCH ×4 (12:40→22:26)
[2021-10-28] MEDS: BARICITINIB 2MG TABLET (OLUMIANT) FOR EUA PO SCH (12:42)
[2021-10-28] MEDS: ENOXAPARIN 40MG/0.4ML SYRINGE (J1650 PER 10MG) SC SCH ×2 (12:43→21:06)
[2021-10-28] MEDS: dexameTHASONE 4 MG/ML 1ML VIAL (J1100 PER 1MG) IV SCH (12:49)
[2021-10-28] MEDS: FUROSEMIDE 20MG/2ML VIAL (J1940) IV SCH (12:54)
[2021-10-28] MEDS: fentaNYL 100 MCG/2 ML INJECTION IV PRN ×2 (12:57→17:10)
[2021-10-28] MEDS: MIDAZOLAM INJ 2MG/2ML VIAL (J2250 PER 1MG) IV PRN ×2 (12:58→19:30)
[2021-10-28] MEDS: guaiFENesin ER 600 MG TAB PO SCH ×2 (12:58→20:39)
[2021-10-28] MEDS: DOCUSATE SODIUM 100MG CAPSULE PO SCH (12:59)
[2021-10-28] MEDS ORDERED: ETOMIDATE INJ 20MG/10ML VIAL ONE (17:57)
[2021-10-28] MEDS ORDERED: propofoL 200 MG/20 ML VIAL ONE (17:57)
[2021-10-28] MEDS ORDERED: ROCURONIUM BROMIDE 50 MG/5 ML VIAL ONE (17:57)
[2021-10-28] MEDS: NS 1,000 ML IV SCH (18:24)
[2021-10-28] MEDS: fentaNYL CITRATE 1,000 MCG in NS 80 ML IV SCH ×2 (20:05→20:21)
[2021-10-28] MEDS: DOCUSATE SOD LIQ 100MG/10ML UDC GT SCH (21:07)
[2021-10-28] MEDS: CHLORHEXIDINE GLUCONATE 0.12 % 15ML UDC (PERIDEX ORAL RINSE) MT SCH (21:07)
[2021-10-29] VITALS (74 sets, daily range): BP systolic 82–123; BP diastolic 46–58; O2SAT 94
[2021-10-29] MEDS: ALBUTEROL SULFATE 2.5 MG/0.5 ML INH NEB SOLN NEB SCH ×6 (00:20→19:17)
[2021-10-29] MEDS: propofoL 1,000 MG in IV 1 EA IV SCH ×7 (01:09→21:44)
[2021-10-29] MEDS: PIPERACILLIN/TAZOBACTAM SOD 3.375 GM in D5W MINI-BAG PLUS 50 ML IV SCH ×4 (03:50→20:22)
[2021-10-29 04:48] LABS: BASO % 0.2 % (0.0-1.0); HEMATOCRIT 28.2 % (36.0-47.0); HEMOGLOBIN 9.2 g/dl (12.0-15.5); LYMPH # 1.1 10^3/uL (1.5-5.0); LYMPH % 17.9 % (24.0-44.0); MEAN CORPUSCULAR HEMOGLOBIN 28.2 pg (27.0-33.0); MEAN CORPUSCULAR HGB CONC 32.6 g/dl (32.0-36.5); MEAN CORPUSCULAR VOLUME 86.5 fl (80.0-96.0); MONO # 0.7 10^3/uL (0.0-0.8); MONO % 10.6 % (2.0-8.0); NEUTROPHILS # 4.3 10^3/uL (1.5-8.5); NEUTROPHILS % 70.3 % (36.0-66.0); PLATELET COUNT, AUTOMATED 374 10^3/uL (150-450); RED BLOOD COUNT 3.26 10^6/uL (4.00-5.40); WHITE BLOOD COUNT 6.1 10^3/uL (4.0-10.0)
[2021-10-29 04:54] LABS: ALBUMIN 1.5 GM/DL (3.2-5.2); ALT/SGPT 56 U/L (12-78); BILIRUBIN,DIRECT 0.2 MG/DL (0.0-0.2); BILIRUBIN,TOTAL 0.3 MG/DL (0.2-1.0); BLOOD UREA NITROGEN 19 MG/DL (7-18); CALCIUM LEVEL 7.8 MG/DL (8.8-10.2); CARBON DIOXIDE LEVEL 39 MEQ/L (21-32); CHLORIDE LEVEL 96 MEQ/L (98-107); CREATININE FOR GFR 0.66 MG/DL (0.55-1.30); FERRITIN 1498 NG/ML (8-252); GLOMERULAR FILTRATION RATE > 60.0 (>45); GLUCOSE, FASTING 144 MG/DL (70-100); LDH LACTATE DEHYDROGENASE 581 U/L (84-246); NT-PRO BNP 5549 PG/ML (<125); POTASSIUM SERUM 3.7 MEQ/L (3.5-5.1); SODIUM LEVEL 136 MEQ/L (136-145); TOTAL PROTEIN 5.3 GM/DL (6.4-8.2)
[2021-10-29 05:02] LABS: INR 1.18; PROTHROMBIN TIME 15.4 SECONDS (12.7-14.5)
[2021-10-29 05:03] LABS: PARTIAL THROMBOPLASTIN TIME 38.6 SECONDS (25.9-37.0)
[2021-10-29] MEDS ORDERED: LR 500 ML IV ONE (05:10)
[2021-10-29] MEDS: REMDESIVIR 100 MG in NS 250 ML IV SCH (05:33)
[2021-10-29 05:57] LABS: ABG BASE EXCESS 10.4 (-2.0-2.0); ABG HCO3 35.7 MEQ/L (22.0-26.0); ABG O2 SATURATION 97.5 % (95.0-99.0); ABG PARTIAL PRESSURE CO2 51.9 mmHg (35.0-45.0); ABG PARTIAL PRESSURE O2 106.3 mmHg (75.0-100.0); ABG STANDARD HCO3 34.1 MEQ/L (22.0-26.0); ABG TOTAL CO2 37.3 MEQ/L (23.0-31.0); ABG pH (ARTERIAL) 7.455 UNITS (7.350-7.450)
[2021-10-29] MEDS: SODIUM CHLORIDE 0.9% INJ 10 ML SYR IV SCH (06:12)
[2021-10-29] MEDS: NOREPINEPHRINE BITARTRATE 16 MG in D5W 484 ML IV SCH (06:53)
[2021-10-29] MEDS: NS 1,000 ML IV SCH (07:00)
[2021-10-29] MEDS: ADVAIR HFA 115/21MCG INHALER INH SCH ×2 (07:30→19:18)
[2021-10-29] MEDS: fentaNYL CITRATE 1,000 MCG in NS 80 ML IV SCH ×5 (08:27→18:00)
[2021-10-29] MEDS: DOCUSATE SOD LIQ 100MG/10ML UDC GT SCH ×2 (08:31→20:23)
[2021-10-29] MEDS: CHLORHEXIDINE GLUCONATE 0.12 % 15ML UDC (PERIDEX ORAL RINSE) MT SCH ×2 (08:32→20:22)
[2021-10-29] MEDS: ENOXAPARIN 40MG/0.4ML SYRINGE (J1650 PER 10MG) SC SCH ×2 (08:33→20:22)
[2021-10-29] MEDS: BARICITINIB 2MG TABLET (OLUMIANT) FOR EUA PO SCH (08:33)
[2021-10-29] MEDS: dexameTHASONE 4 MG/ML 1ML VIAL (J1100 PER 1MG) IV SCH (08:35)
[2021-10-29] MEDS: MIDAZOLAM INJ 2MG/2ML VIAL (J2250 PER 1MG) IV PRN (08:58)
[2021-10-29] MEDS ORDERED: dexmedeTOMidine 200 MCG in IV 1 EA IV SCH (10:15)
[2021-10-29] MEDS: PANTOPRAZOLE 40MG VIAL (C9113 PER 1) IV SCH (11:16)
[2021-10-30] VITALS (59 sets, daily range): BP systolic 86–131; BP diastolic 46–62; O2SAT 97
[2021-10-30] MEDS: ALBUTEROL SULFATE 2.5 MG/0.5 ML INH NEB SOLN NEB SCH ×6 (00:22→19:43)
[2021-10-30] MEDS: fentaNYL CITRATE 1,000 MCG in NS 80 ML IV SCH ×3 (01:29→15:56)
[2021-10-30] MEDS: propofoL 1,000 MG in IV 1 EA IV SCH ×5 (02:12→20:29)
[2021-10-30] MEDS: PIPERACILLIN/TAZOBACTAM SOD 3.375 GM in D5W MINI-BAG PLUS 50 ML IV SCH ×4 (03:00→20:19)
[2021-10-30] MEDS: REMDESIVIR 100 MG in NS 250 ML IV SCH (05:13)
[2021-10-30 05:15] LABS: BASO # 0.1 10^3/uL (0.0-0.2); BASO % 0.6 % (0.0-1.0); HEMATOCRIT 32.5 % (36.0-47.0); HEMOGLOBIN 10.4 g/dl (12.0-15.5); LYMPH # 1.8 10^3/uL (1.5-5.0); LYMPH % 19.6 % (24.0-44.0); MEAN CORPUSCULAR HEMOGLOBIN 28.4 pg (27.0-33.0); MEAN CORPUSCULAR VOLUME 88.8 fl (80.0-96.0); MONO % 18.7 % (2.0-8.0); NEUTROPHILS # 5.3 10^3/uL (1.5-8.5); NEUTROPHILS % 58.8 % (36.0-66.0); PLATELET COUNT, AUTOMATED 494 10^3/uL (150-450); RED BLOOD COUNT 3.66 10^6/uL (4.00-5.40); WHITE BLOOD COUNT 9.1 10^3/uL (4.0-10.0)
[2021-10-30 05:35] LABS: ABG BASE EXCESS 11.8 (-2.0-2.0); ABG HCO3 39.4 MEQ/L (22.0-26.0); ABG O2 SATURATION 94.7 % (95.0-99.0); ABG PARTIAL PRESSURE O2 80.9 mmHg (75.0-100.0); ABG STANDARD HCO3 35.5 MEQ/L (22.0-26.0); ABG TOTAL CO2 41.5 MEQ/L (23.0-31.0); ABG pH (ARTERIAL) 7.375 UNITS (7.350-7.450)
[2021-10-30 05:38] LABS: ABG PARTIAL PRESSURE CO2 68.9 mmHg (35.0-45.0)
[2021-10-30 05:40] LABS: ALBUMIN 1.7 GM/DL (3.2-5.2); ALT/SGPT 49 U/L (12-78); BILIRUBIN,DIRECT 0.2 MG/DL (0.0-0.2); BILIRUBIN,TOTAL 0.5 MG/DL (0.2-1.0); BLOOD UREA NITROGEN 16 MG/DL (7-18); CALCIUM LEVEL 7.9 MG/DL (8.8-10.2); CARBON DIOXIDE LEVEL 36 MEQ/L (21-32); CHLORIDE LEVEL 96 MEQ/L (98-107); CREATININE FOR GFR 0.62 MG/DL (0.55-1.30); GLOMERULAR FILTRATION RATE > 60.0 (>45); GLUCOSE, FASTING 139 MG/DL (70-100); PHOSPHORUS LEVEL 3.1 MG/DL (2.5-4.9); POTASSIUM SERUM 4.2 MEQ/L (3.5-5.1); SODIUM LEVEL 137 MEQ/L (136-145); TOTAL PROTEIN 5.5 GM/DL (6.4-8.2); TRIGLYCERIDES LEVEL 256 MG/DL (<150)
[2021-10-30 05:41] LABS: MONO # 1.7 10^3/uL (0.0-0.8)
[2021-10-30] MEDS: SODIUM CHLORIDE 0.9% INJ 10 ML SYR IV SCH (06:05)
[2021-10-30] MEDS: MIDAZOLAM INJ 2MG/2ML VIAL (J2250 PER 1MG) IV PRN ×4 (08:20→20:18)
[2021-10-30] MEDS: CHLORHEXIDINE GLUCONATE 0.12 % 15ML UDC (PERIDEX ORAL RINSE) MT SCH ×2 (08:24→20:19)
[2021-10-30] MEDS: DOCUSATE SOD LIQ 100MG/10ML UDC GT SCH ×2 (08:24→20:19)
[2021-10-30] MEDS: BARICITINIB 2MG TABLET (OLUMIANT) FOR EUA PO SCH (08:24)
[2021-10-30] MEDS: dexameTHASONE 4 MG/ML 1ML VIAL (J1100 PER 1MG) IV SCH (08:24)
[2021-10-30] MEDS: ENOXAPARIN 40MG/0.4ML SYRINGE (J1650 PER 10MG) SC SCH ×2 (08:27→20:17)
[2021-10-30] MEDS: ADVAIR HFA 115/21MCG INHALER INH SCH ×2 (09:23→19:43)
[2021-10-30] MEDS ORDERED: LR 500 ML IV ONE (10:40)
[2021-10-30] MEDS: PANTOPRAZOLE 40MG VIAL (C9113 PER 1) IV SCH (11:00)
[2021-10-30] MEDS: NOREPINEPHRINE BITARTRATE 16 MG in D5W 484 ML IV SCH (14:59)
[2021-10-30 15:09] LABS: BODY FLUID CULTURE Not indicated. (.); HISTOPLASMA GAL'MANNAN AG UR <0.5 (<0.5 ng/mL); LEGIONELLA ANTIGEN URINE Negative (Negative); ORGANISM ID Not indicated. (.); SPECIMEN SOURCE Urine (.); URINE STREP PNEUMONIAE ANTIGEN Negative (Negative)
[2021-10-31] VITALS (49 sets, daily range): BP systolic 88–125; BP diastolic 47–66; O2SAT 97
[2021-10-31] MEDS: ALBUTEROL SULFATE 2.5 MG/0.5 ML INH NEB SOLN NEB SCH ×6 (00:13→20:02)
[2021-10-31] MEDS: MIDAZOLAM INJ 2MG/2ML VIAL (J2250 PER 1MG) IV PRN ×5 (01:25→12:15)
[2021-10-31] MEDS: propofoL 1,000 MG in IV 1 EA IV SCH ×5 (01:26→20:16)
[2021-10-31] MEDS: fentaNYL CITRATE 1,000 MCG in NS 80 ML IV SCH ×3 (01:27→20:03)
[2021-10-31] MEDS: PIPERACILLIN/TAZOBACTAM SOD 3.375 GM in D5W MINI-BAG PLUS 50 ML IV SCH ×4 (04:28→20:58)
[2021-10-31] MEDS: REMDESIVIR 100 MG in NS 250 ML IV SCH (05:22)
[2021-10-31 05:55] LABS: ABG HCO3 35.3 MEQ/L (22.0-26.0); ABG O2 SATURATION 97.5 % (95.0-99.0); ABG PARTIAL PRESSURE CO2 58.9 mmHg (35.0-45.0); ABG PARTIAL PRESSURE O2 106.7 mmHg (75.0-100.0); ABG STANDARD HCO3 32.7 MEQ/L (22.0-26.0); ABG TOTAL CO2 37.1 MEQ/L (23.0-31.0); ABG pH (ARTERIAL) 7.396 UNITS (7.350-7.450)
[2021-10-31 05:59] LABS: BASO % 0.7 % (0.0-1.0); HEMATOCRIT 29.6 % (36.0-47.0); HEMOGLOBIN 9.4 g/dl (12.0-15.5); LYMPH # 1.1 10^3/uL (1.5-5.0); LYMPH % 18.5 % (24.0-44.0); MEAN CORPUSCULAR HEMOGLOBIN 28.1 pg (27.0-33.0); MEAN CORPUSCULAR HGB CONC 31.8 g/dl (32.0-36.5); MEAN CORPUSCULAR VOLUME 88.6 fl (80.0-96.0); MONO # 0.7 10^3/uL (0.0-0.8); MONO % 12.5 % (2.0-8.0); NEUTROPHILS # 3.9 10^3/uL (1.5-8.5); NEUTROPHILS % 65.4 % (36.0-66.0); PLATELET COUNT, AUTOMATED 409 10^3/uL (150-450); RED BLOOD COUNT 3.34 10^6/uL (4.00-5.40); WHITE BLOOD COUNT 5.9 10^3/uL (4.0-10.0)
[2021-10-31 06:10] LABS: INR 1.02; PARTIAL THROMBOPLASTIN TIME 30.6 SECONDS (25.9-37.0); PROTHROMBIN TIME 13.8 SECONDS (12.7-14.5)
[2021-10-31 06:25] LABS: ALBUMIN 1.5 GM/DL (3.2-5.2); ALT/SGPT 45 U/L (12-78); BILIRUBIN,DIRECT 0.2 MG/DL (0.0-0.2); BILIRUBIN,TOTAL 0.3 MG/DL (0.2-1.0); BLOOD UREA NITROGEN 18 MG/DL (7-18); CALCIUM LEVEL 7.6 MG/DL (8.8-10.2); CARBON DIOXIDE LEVEL 38 MEQ/L (21-32); CHLORIDE LEVEL 94 MEQ/L (98-107); CREATININE FOR GFR 0.57 MG/DL (0.55-1.30); FERRITIN 887 NG/ML (8-252); GLOMERULAR FILTRATION RATE > 60.0 (>45); GLUCOSE, FASTING 147 MG/DL (70-100); LDH LACTATE DEHYDROGENASE 405 U/L (84-246); MAGNESIUM LEVEL 2.1 MG/DL (1.8-2.4); NT-PRO BNP 3551 PG/ML (<125); SODIUM LEVEL 135 MEQ/L (136-145); TOTAL PROTEIN 4.7 GM/DL (6.4-8.2)
[2021-10-31] MEDS: SODIUM CHLORIDE 0.9% INJ 10 ML SYR IV SCH (06:32)
[2021-10-31] MEDS: CHLORHEXIDINE GLUCONATE 0.12 % 15ML UDC (PERIDEX ORAL RINSE) MT SCH ×2 (08:04→20:58)
[2021-10-31] MEDS: DOCUSATE SOD LIQ 100MG/10ML UDC GT SCH ×2 (08:04→20:50)
[2021-10-31] MEDS: dexameTHASONE 4 MG/ML 1ML VIAL (J1100 PER 1MG) IV SCH (08:05)
[2021-10-31] MEDS: ENOXAPARIN 40MG/0.4ML SYRINGE (J1650 PER 10MG) SC SCH ×2 (08:05→20:55)
[2021-10-31] MEDS: BARICITINIB 2MG TABLET (OLUMIANT) FOR EUA PO SCH (08:05)
[2021-10-31] MEDS: ADVAIR HFA 115/21MCG INHALER INH SCH ×2 (08:15→20:02)
[2021-10-31] MEDS: NOREPINEPHRINE BITARTRATE 16 MG in D5W 484 ML IV SCH ×2 (08:31→14:20)
[2021-10-31] MEDS: PANTOPRAZOLE 40MG VIAL (C9113 PER 1) IV SCH (10:29)
[2021-10-31] MEDS: fentaNYL 100 MCG/2 ML INJECTION IV PRN (20:06)
[2021-11-01] VITALS (28 sets, daily range): BP systolic 83–127; BP diastolic 44–63
[2021-11-01] MEDS: ALBUTEROL SULFATE 2.5 MG/0.5 ML INH NEB SOLN NEB SCH ×6 (00:29→20:00)
[2021-11-01] MEDS: propofoL 1,000 MG in IV 1 EA IV SCH ×5 (01:00→15:43)
[2021-11-01 05:06] LABS: BASO # 0.1 10^3/uL (0.0-0.2); BASO % 0.8 % (0.0-1.0); HEMATOCRIT 29.9 % (36.0-47.0); HEMOGLOBIN 9.9 g/dl (12.0-15.5); LYMPH # 1.4 10^3/uL (1.5-5.0); MEAN CORPUSCULAR HEMOGLOBIN 28.6 pg (27.0-33.0); MEAN CORPUSCULAR HGB CONC 33.1 g/dl (32.0-36.5); MEAN CORPUSCULAR VOLUME 86.4 fl (80.0-96.0); MONO # 0.8 10^3/uL (0.0-0.8); NEUTROPHILS # 3.7 10^3/uL (1.5-8.5); NEUTROPHILS % 59.3 % (36.0-66.0); PLATELET COUNT, AUTOMATED 423 10^3/uL (150-450); RED BLOOD COUNT 3.46 10^6/uL (4.00-5.40); WHITE BLOOD COUNT 6.2 10^3/uL (4.0-10.0)
[2021-11-01] MEDS: fentaNYL CITRATE 1,000 MCG in NS 80 ML IV SCH ×2 (05:30→15:42)
[2021-11-01 05:40] LABS: BLOOD UREA NITROGEN 19 MG/DL (7-18); CALCIUM LEVEL 7.9 MG/DL (8.8-10.2); CARBON DIOXIDE LEVEL 40 MEQ/L (21-32); CHLORIDE LEVEL 96 MEQ/L (98-107); GLOMERULAR FILTRATION RATE > 60.0 (>45); GLUCOSE, FASTING 128 MG/DL (70-100); MAGNESIUM LEVEL 2.1 MG/DL (1.8-2.4); PHOSPHORUS LEVEL 3.1 MG/DL (2.5-4.9); POTASSIUM SERUM 3.7 MEQ/L (3.5-5.1); SODIUM LEVEL 137 MEQ/L (136-145); TRIGLYCERIDES LEVEL 241 MG/DL (<150)
[2021-11-01 05:47] LABS: ABG BASE EXCESS 16.1 (-2.0-2.0); ABG PARTIAL PRESSURE CO2 57.9 mmHg (35.0-45.0); ABG PARTIAL PRESSURE O2 86.5 mmHg (75.0-100.0); ABG TOTAL CO2 43.7 MEQ/L (23.0-31.0); ABG pH (ARTERIAL) 7.478 UNITS (7.350-7.450)
[2021-11-01] MEDS: ADVAIR HFA 115/21MCG INHALER INH SCH ×2 (07:50→20:12)
[2021-11-01] MEDS: DOCUSATE SOD LIQ 100MG/10ML UDC GT SCH ×2 (08:09→21:49)
[2021-11-01] MEDS: CHLORHEXIDINE GLUCONATE 0.12 % 15ML UDC (PERIDEX ORAL RINSE) MT SCH ×2 (08:09→21:59)
[2021-11-01] MEDS: BARICITINIB 2MG TABLET (OLUMIANT) FOR EUA PO SCH (08:10)
[2021-11-01] MEDS: ENOXAPARIN 40MG/0.4ML SYRINGE (J1650 PER 10MG) SC SCH ×2 (08:10→21:59)
[2021-11-01] MEDS: dexameTHASONE 4 MG/ML 1ML VIAL (J1100 PER 1MG) IV SCH (08:11)
[2021-11-01] MEDS: MIDAZOLAM INJ 2MG/2ML VIAL (J2250 PER 1MG) IV PRN ×2 (08:27→15:43)
[2021-11-01] MEDS: PANTOPRAZOLE 40MG VIAL (C9113 PER 1) IV SCH (12:15)
[2021-11-01] MEDS ORDERED: REFRIGERATOR IV KEYS XX PRN (16:55)
[2021-11-01] MEDS: MIDAZOLAM HCL 100 MG in D5W 80 ML IV SCH (18:00)
[2021-11-01] MEDS ORDERED: QUEtiapine FUMARATE 25 MG TAB PO SCH (21:00)
[2021-11-02] VITALS (26 sets, daily range): BP systolic 91–149; BP diastolic 49–70
[2021-11-02] MEDS: ALBUTEROL SULFATE 2.5 MG/0.5 ML INH NEB SOLN NEB SCH ×6 (00:39→19:58)
[2021-11-02] MEDS: fentaNYL CITRATE 1,000 MCG in NS 80 ML IV SCH ×3 (01:38→21:00)
[2021-11-02 05:20] LABS: BASO % 0.6 % (0.0-1.0); HEMATOCRIT 27.9 % (36.0-47.0); LYMPH # 1.3 10^3/uL (1.5-5.0); LYMPH % 18.5 % (24.0-44.0); MEAN CORPUSCULAR HEMOGLOBIN 28.4 pg (27.0-33.0); MEAN CORPUSCULAR HGB CONC 32.3 g/dl (32.0-36.5); MONO # 0.9 10^3/uL (0.0-0.8); MONO % 12.9 % (2.0-8.0); NEUTROPHILS # 4.6 10^3/uL (1.5-8.5); NEUTROPHILS % 64.2 % (36.0-66.0); PLATELET COUNT, AUTOMATED 470 10^3/uL (150-450); RED BLOOD COUNT 3.17 10^6/uL (4.00-5.40); WHITE BLOOD COUNT 7.2 10^3/uL (4.0-10.0)
[2021-11-02] MEDS: MIDAZOLAM INJ 2MG/2ML VIAL (J2250 PER 1MG) IV PRN ×2 (05:25→23:03)
[2021-11-02 05:30] LABS: INR 0.99; PROTHROMBIN TIME 13.5 SECONDS (12.7-14.5)
[2021-11-02 05:31] LABS: PARTIAL THROMBOPLASTIN TIME 28.8 SECONDS (25.9-37.0)
[2021-11-02 05:49] LABS: ALBUMIN 1.7 GM/DL (3.2-5.2); ALT/SGPT 42 U/L (12-78); BILIRUBIN,DIRECT 0.2 MG/DL (0.0-0.2); BILIRUBIN,TOTAL 0.3 MG/DL (0.2-1.0); BLOOD UREA NITROGEN 22 MG/DL (7-18); CALCIUM LEVEL 7.8 MG/DL (8.8-10.2); CARBON DIOXIDE LEVEL 42 MEQ/L (21-32); CHLORIDE LEVEL 95 MEQ/L (98-107); CREATININE FOR GFR 0.46 MG/DL (0.55-1.30); FERRITIN 954 NG/ML (8-252); GLOMERULAR FILTRATION RATE > 60.0 (>45); GLUCOSE, FASTING 122 MG/DL (70-100); LDH LACTATE DEHYDROGENASE 364 U/L (84-246); MAGNESIUM LEVEL 2.2 MG/DL (1.8-2.4); NT-PRO BNP 2222 PG/ML (<125); PHOSPHORUS LEVEL 3.1 MG/DL (2.5-4.9); POTASSIUM SERUM 4.2 MEQ/L (3.5-5.1); SODIUM LEVEL 137 MEQ/L (136-145); TOTAL PROTEIN 4.5 GM/DL (6.4-8.2)
[2021-11-02 06:36] LABS: ABG BASE EXCESS 16.7 (-2.0-2.0); ABG HCO3 42.1 MEQ/L (22.0-26.0); ABG O2 SATURATION 97.9 % (95.0-99.0); ABG PARTIAL PRESSURE CO2 55.8 mmHg (35.0-45.0); ABG PARTIAL PRESSURE O2 113.5 mmHg (75.0-100.0); ABG STANDARD HCO3 40.6 MEQ/L (22.0-26.0); ABG TOTAL CO2 43.9 MEQ/L (23.0-31.0); ABG pH (ARTERIAL) 7.496 UNITS (7.350-7.450)
[2021-11-02] MEDS: BARICITINIB 2MG TABLET (OLUMIANT) FOR EUA PO SCH (08:25)
[2021-11-02] MEDS: CHLORHEXIDINE GLUCONATE 0.12 % 15ML UDC (PERIDEX ORAL RINSE) MT SCH ×2 (08:25→23:04)
[2021-11-02] MEDS: DOCUSATE SOD LIQ 100MG/10ML UDC GT SCH ×2 (08:25→23:04)
[2021-11-02] MEDS: QUEtiapine FUMARATE 25 MG TAB PO SCH ×2 (08:26→23:04)
[2021-11-02] MEDS: dexameTHASONE 4 MG/ML 1ML VIAL (J1100 PER 1MG) IV SCH (08:26)
[2021-11-02] MEDS: ENOXAPARIN 40MG/0.4ML SYRINGE (J1650 PER 10MG) SC SCH ×2 (08:26→23:04)
[2021-11-02] MEDS: ADVAIR HFA 115/21MCG INHALER INH SCH ×2 (08:40→19:58)
[2021-11-02] MEDS: PANTOPRAZOLE 40MG VIAL (C9113 PER 1) IV SCH (10:35)
[2021-11-02] MEDS: MIDAZOLAM HCL 100 MG in D5W 80 ML IV SCH ×3 (10:45)
[2021-11-02] MEDS: fentaNYL 100 MCG/2 ML INJECTION IV PRN (23:03)
[2021-11-03] VITALS (33 sets, daily range): BP systolic 97–141; BP diastolic 49–69
[2021-11-03] MEDS: ALBUTEROL SULFATE 2.5 MG/0.5 ML INH NEB SOLN NEB SCH ×6 (00:24→19:49)
[2021-11-03] MEDS: propofoL 1,000 MG in IV 1 EA IV SCH (04:34)
[2021-11-03 05:06] LABS: BASO % 0.4 % (0.0-1.0); EOS % 0.1 % (0.0-3.0); HEMATOCRIT 26.2 % (36.0-47.0); HEMOGLOBIN 8.6 g/dl (12.0-15.5); LYMPH # 1.3 10^3/uL (1.5-5.0); LYMPH % 16.1 % (24.0-44.0); MEAN CORPUSCULAR HEMOGLOBIN 28.7 pg (27.0-33.0); MEAN CORPUSCULAR HGB CONC 32.8 g/dl (32.0-36.5); MEAN CORPUSCULAR VOLUME 87.3 fl (80.0-96.0); MONO # 0.9 10^3/uL (0.0-0.8); MONO % 10.6 % (2.0-8.0); NEUTROPHILS # 5.6 10^3/uL (1.5-8.5); NEUTROPHILS % 69.8 % (36.0-66.0); PLATELET COUNT, AUTOMATED 442 10^3/uL (150-450)
[2021-11-03 05:56] LABS: ABG BASE EXCESS 13.6 (-2.0-2.0); ABG HCO3 38.1 MEQ/L (22.0-26.0); ABG O2 SATURATION 98.8 % (95.0-99.0); ABG PARTIAL PRESSURE CO2 49.1 mmHg (35.0-45.0); ABG PARTIAL PRESSURE O2 139.4 mmHg (75.0-100.0); ABG STANDARD HCO3 37.3 MEQ/L (22.0-26.0); ABG TOTAL CO2 39.6 MEQ/L (23.0-31.0); ABG pH (ARTERIAL) 7.508 UNITS (7.350-7.450)
[2021-11-03 06:14] LABS: BLOOD UREA NITROGEN 21 MG/DL (7-18); CARBON DIOXIDE LEVEL 42 MEQ/L (21-32); CHLORIDE LEVEL 97 MEQ/L (98-107); CREATININE FOR GFR 0.45 MG/DL (0.55-1.30); GLOMERULAR FILTRATION RATE > 60.0 (>45); GLUCOSE, FASTING 108 MG/DL (70-100); MAGNESIUM LEVEL 2.2 MG/DL (1.8-2.4); PHOSPHORUS LEVEL 2.5 MG/DL (2.5-4.9); POTASSIUM SERUM 3.8 MEQ/L (3.5-5.1); SODIUM LEVEL 139 MEQ/L (136-145)
[2021-11-03] MEDS: ADVAIR HFA 115/21MCG INHALER INH SCH ×2 (07:47→19:49)
[2021-11-03] MEDS: fentaNYL CITRATE 1,000 MCG in NS 80 ML IV SCH ×2 (07:59→17:30)
[2021-11-03] MEDS: MIDAZOLAM HCL 100 MG in D5W 80 ML IV SCH ×2 (08:13→19:00)
[2021-11-03] MEDS: DOCUSATE SOD LIQ 100MG/10ML UDC GT SCH ×2 (09:50→20:11)
[2021-11-03] MEDS: CHLORHEXIDINE GLUCONATE 0.12 % 15ML UDC (PERIDEX ORAL RINSE) MT SCH ×2 (09:50→20:11)
[2021-11-03] MEDS: BARICITINIB 2MG TABLET (OLUMIANT) FOR EUA PO SCH (09:51)
[2021-11-03] MEDS: dexameTHASONE 4 MG/ML 1ML VIAL (J1100 PER 1MG) IV SCH (09:52)
[2021-11-03] MEDS: ENOXAPARIN 60MG/0.6ML SYRINGE (J1650 PER 10MG) SC SCH ×2 (09:52→20:12)
[2021-11-03] MEDS: PANTOPRAZOLE 40MG VIAL (C9113 PER 1) IV SCH (09:52)
[2021-11-03] MEDS: QUEtiapine FUMARATE 25 MG TAB PO SCH ×2 (09:52→20:11)
[2021-11-03] MEDS: ASPIRIN 81MG ENTERIC TABLET PO SCH (09:53)
[2021-11-03] MEDS: ATORVASTATIN 20 MG TAB PO SCH (20:11)
[2021-11-03] MEDS: MIDAZOLAM INJ 2MG/2ML VIAL (J2250 PER 1MG) IV PRN (20:12)
[2021-11-04] VITALS (17 sets, daily range): BP systolic 110–175; BP diastolic 56–91; O2SAT 96
[2021-11-04] MEDS: ALBUTEROL SULFATE 2.5 MG/0.5 ML INH NEB SOLN NEB SCH ×3 (00:18→07:47)
[2021-11-04] MEDS: fentaNYL CITRATE 1,000 MCG in NS 80 ML IV SCH ×2 (01:30→11:30)
[2021-11-04 05:24] LABS: BASO % 0.2 % (0.0-1.0); HEMATOCRIT 29.6 % (36.0-47.0); HEMOGLOBIN 9.7 g/dl (12.0-15.5); LYMPH # 1.5 10^3/uL (1.5-5.0); LYMPH % 11.9 % (24.0-44.0); MEAN CORPUSCULAR HEMOGLOBIN 28.9 pg (27.0-33.0); MEAN CORPUSCULAR HGB CONC 32.8 g/dl (32.0-36.5); MEAN CORPUSCULAR VOLUME 88.1 fl (80.0-96.0); MONO # 1.2 10^3/uL (0.0-0.8); MONO % 9.6 % (2.0-8.0); NEUTROPHILS # 9.7 10^3/uL (1.5-8.5); NEUTROPHILS % 75.6 % (36.0-66.0); PLATELET COUNT, AUTOMATED 579 10^3/uL (150-450); RED BLOOD COUNT 3.36 10^6/uL (4.00-5.40); WHITE BLOOD COUNT 12.8 10^3/uL (4.0-10.0)
[2021-11-04 05:52] LABS: ABG BASE EXCESS 12.4 (-2.0-2.0); ABG HCO3 37.2 MEQ/L (22.0-26.0); ABG O2 SATURATION 96.4 % (95.0-99.0); ABG PARTIAL PRESSURE O2 85.4 mmHg (75.0-100.0); ABG STANDARD HCO3 36.2 MEQ/L (22.0-26.0); ABG TOTAL CO2 38.7 MEQ/L (23.0-31.0); ABG pH (ARTERIAL) 7.498 UNITS (7.350-7.450)
[2021-11-04 05:56] LABS: BLOOD UREA NITROGEN 22 MG/DL (7-18); CARBON DIOXIDE LEVEL 41 MEQ/L (21-32); CHLORIDE LEVEL 96 MEQ/L (98-107); CREATININE FOR GFR 0.49 MG/DL (0.55-1.30); GLOMERULAR FILTRATION RATE > 60.0 (>45); GLUCOSE, FASTING 103 MG/DL (70-100); POTASSIUM SERUM 3.9 MEQ/L (3.5-5.1); SODIUM LEVEL 141 MEQ/L (136-145)
[2021-11-04 05:57] LABS: CALCIUM LEVEL 8.2 MG/DL (8.8-10.2); MAGNESIUM LEVEL 2.1 MG/DL (1.8-2.4); PHOSPHORUS LEVEL 3.1 MG/DL (2.5-4.9); TRIGLYCERIDES LEVEL 185 MG/DL (<150)
[2021-11-04] MEDS: ADVAIR HFA 115/21MCG INHALER INH SCH ×2 (07:47→20:16)
[2021-11-04] MEDS: MIDAZOLAM HCL 100 MG in D5W 80 ML IV SCH (08:00)
[2021-11-04] MEDS: CHLORHEXIDINE GLUCONATE 0.12 % 15ML UDC (PERIDEX ORAL RINSE) MT SCH ×2 (08:26→20:15)
[2021-11-04] MEDS: DOCUSATE SOD LIQ 100MG/10ML UDC GT SCH ×2 (08:26→20:15)
[2021-11-04] MEDS: ENOXAPARIN 60MG/0.6ML SYRINGE (J1650 PER 10MG) SC SCH ×2 (08:26→20:15)
[2021-11-04] MEDS: QUEtiapine FUMARATE 25 MG TAB PO SCH (08:27)
[2021-11-04] MEDS: PANTOPRAZOLE 40MG VIAL (C9113 PER 1) IV SCH (08:27)
[2021-11-04] MEDS: BARICITINIB 2MG TABLET (OLUMIANT) FOR EUA PO SCH (08:27)
[2021-11-04] MEDS: ASPIRIN 81MG ENTERIC TABLET PO SCH (08:27)
[2021-11-04] MEDS: dexameTHASONE 4 MG/ML 1ML VIAL (J1100 PER 1MG) IV SCH (08:28)
[2021-11-04] MEDS ORDERED: MIDAZOLAM INJ 2MG/2ML VIAL (J2250 PER 1MG) IV PRN (08:35)
[2021-11-04] MEDS ORDERED: HALOPERIDOL 5MG/ML VIAL (J1630 PER 1) IV ONE (20:00)
[2021-11-04] MEDS: ATORVASTATIN 20 MG TAB PO SCH (20:15)
[2021-11-05] VITALS (10 sets, daily range): BP systolic 110–149; BP diastolic 55–72
[2021-11-05 05:15] LABS: BASO % 0.2 % (0.0-1.0); HEMATOCRIT 28.8 % (36.0-47.0); HEMOGLOBIN 9.5 g/dl (12.0-15.5); LYMPH # 1.6 10^3/uL (1.5-5.0); LYMPH % 8.6 % (24.0-44.0); MEAN CORPUSCULAR HEMOGLOBIN 28.8 pg (27.0-33.0); MEAN CORPUSCULAR VOLUME 87.3 fl (80.0-96.0); MONO % 8.6 % (2.0-8.0); NEUTROPHILS # 15.4 10^3/uL (1.5-8.5); NEUTROPHILS % 80.8 % (36.0-66.0); PLATELET COUNT, AUTOMATED 624 10^3/uL (150-450)
[2021-11-05 05:27] LABS: MONO # 1.6 10^3/uL (0.0-0.8)
[2021-11-05 05:47] LABS: BLOOD UREA NITROGEN 16 MG/DL (7-18); CALCIUM LEVEL 8.1 MG/DL (8.8-10.2); CARBON DIOXIDE LEVEL 38 MEQ/L (21-32); CHLORIDE LEVEL 98 MEQ/L (98-107); CREATININE FOR GFR 0.34 MG/DL (0.55-1.30); GLOMERULAR FILTRATION RATE > 60.0 (>45); GLUCOSE, FASTING 75 MG/DL (70-100); MAGNESIUM LEVEL 1.8 MG/DL (1.8-2.4); PHOSPHORUS LEVEL 2.9 MG/DL (2.5-4.9); POTASSIUM SERUM 2.9 MEQ/L (3.5-5.1); SODIUM LEVEL 140 MEQ/L (136-145)
[2021-11-05] MEDS: ADVAIR HFA 115/21MCG INHALER INH SCH ×2 (07:42→20:00)
[2021-11-05] MEDS: DOCUSATE SOD LIQ 100MG/10ML UDC GT SCH ×2 (08:43→20:29)
[2021-11-05] MEDS: POTASSIUM CHLORIDE 10MEQ SR TABLET PO SCH ×2 (08:43→12:30)
[2021-11-05] MEDS: PARoxetine 20MG TABLET PO SCH (08:44)
[2021-11-05] MEDS: dexameTHASONE 4 MG/ML 1ML VIAL (J1100 PER 1MG) IV SCH (08:44)
[2021-11-05] MEDS: BARICITINIB 2MG TABLET (OLUMIANT) FOR EUA PO SCH (08:45)
[2021-11-05] MEDS: ASPIRIN 81MG ENTERIC TABLET PO SCH (08:45)
[2021-11-05] MEDS: ENOXAPARIN 60MG/0.6ML SYRINGE (J1650 PER 10MG) SC SCH ×2 (08:45→20:29)
[2021-11-05 13:56] LABS: C REACTIVE PROTEIN QUANTITATIV 1.22 MG/DL (0.00-0.30)
[2021-11-05 16:06] LABS: BLOOD UREA NITROGEN 18 MG/DL (7-18); CARBON DIOXIDE LEVEL 34 MEQ/L (21-32); CHLORIDE LEVEL 92 MEQ/L (98-107); CREATININE FOR GFR 0.51 MG/DL (0.55-1.30); GLOMERULAR FILTRATION RATE > 60.0 (>45); GLUCOSE, FASTING 124 MG/DL (70-100)
[2021-11-05 16:15] LABS: SODIUM LEVEL 130 MEQ/L (136-145)
[2021-11-05] MEDS: ATORVASTATIN 20 MG TAB PO SCH (20:29)
[2021-11-06] VITALS (7 sets, daily range): BP systolic 115–157; BP diastolic 55–80
[2021-11-06 04:07] LABS: BASO % 0.1 % (0.0-1.0); EOS % 0.1 % (0.0-3.0); HEMATOCRIT 28.5 % (36.0-47.0); HEMOGLOBIN 9.8 g/dl (12.0-15.5); LYMPH # 1.7 10^3/uL (1.5-5.0); LYMPH % 11.8 % (24.0-44.0); MEAN CORPUSCULAR HEMOGLOBIN 29.2 pg (27.0-33.0); MEAN CORPUSCULAR HGB CONC 34.4 g/dl (32.0-36.5); MEAN CORPUSCULAR VOLUME 84.8 fl (80.0-96.0); MONO # 1.4 10^3/uL (0.0-0.8); MONO % 9.9 % (2.0-8.0); NEUTROPHILS % 76.8 % (36.0-66.0); PLATELET COUNT, AUTOMATED 589 10^3/uL (150-450); RED BLOOD COUNT 3.36 10^6/uL (4.00-5.40); WHITE BLOOD COUNT 14.4 10^3/uL (4.0-10.0)
[2021-11-06 04:30] LABS: BLOOD UREA NITROGEN 17 MG/DL (7-18); CALCIUM LEVEL 8.2 MG/DL (8.8-10.2); CARBON DIOXIDE LEVEL 33 MEQ/L (21-32); CHLORIDE LEVEL 96 MEQ/L (98-107); CREATININE FOR GFR 0.41 MG/DL (0.55-1.30); GLOMERULAR FILTRATION RATE > 60.0 (>45); GLUCOSE, FASTING 82 MG/DL (70-100); MAGNESIUM LEVEL 1.8 MG/DL (1.8-2.4); PHOSPHORUS LEVEL 3.4 MG/DL (2.5-4.9); POTASSIUM SERUM 3.8 MEQ/L (3.5-5.1); SODIUM LEVEL 133 MEQ/L (136-145)
[2021-11-06] MEDS: ADVAIR HFA 115/21MCG INHALER INH SCH ×2 (07:45→19:36)
[2021-11-06] MEDS: ASPIRIN 81MG ENTERIC TABLET PO SCH (08:26)
[2021-11-06] MEDS: BARICITINIB 2MG TABLET (OLUMIANT) FOR EUA PO SCH (08:26)
[2021-11-06] MEDS: PARoxetine 20MG TABLET PO SCH (08:26)
[2021-11-06] MEDS: ENOXAPARIN 60MG/0.6ML SYRINGE (J1650 PER 10MG) SC SCH ×2 (08:27→08:39)
[2021-11-06] MEDS: DOCUSATE SOD LIQ 100MG/10ML UDC GT SCH ×2 (08:27→22:00)
[2021-11-06] MEDS: APIXABAN 5 MG TAB (ELIQUIS) PO SCH ×2 (09:01→22:00)
[2021-11-06] MEDS: ATORVASTATIN 20 MG TAB PO SCH (22:00)
[2021-11-07 06:23] VITALS: BP 115/69
[2021-11-07] MEDS: ADVAIR HFA 115/21MCG INHALER INH SCH ×2 (07:32→19:30)
[2021-11-07 09:00] LABS: BASO % 0.1 % (0.0-1.0); EOS # 0.1 10^3/uL (0.0-0.5); EOS % 0.4 % (0.0-3.0); HEMATOCRIT 29.7 % (36.0-47.0); HEMOGLOBIN 9.8 g/dl (12.0-15.5); LYMPH # 1.4 10^3/uL (1.5-5.0); LYMPH % 11.6 % (24.0-44.0); MEAN CORPUSCULAR HEMOGLOBIN 29.1 pg (27.0-33.0); MEAN CORPUSCULAR VOLUME 88.1 fl (80.0-96.0); MONO # 1.1 10^3/uL (0.0-0.8); MONO % 8.9 % (2.0-8.0); NEUTROPHILS # 9.2 10^3/uL (1.5-8.5); NEUTROPHILS % 77.7 % (36.0-66.0); PLATELET COUNT, AUTOMATED 622 10^3/uL (150-450); RED BLOOD COUNT 3.37 10^6/uL (4.00-5.40); WHITE BLOOD COUNT 11.8 10^3/uL (4.0-10.0)
[2021-11-07 09:25] LABS: BLOOD UREA NITROGEN 13 MG/DL (7-18); CARBON DIOXIDE LEVEL 31 MEQ/L (21-32); CHLORIDE LEVEL 100 MEQ/L (98-107); CREATININE FOR GFR 0.44 MG/DL (0.55-1.30); GLOMERULAR FILTRATION RATE > 60.0 (>45); GLUCOSE, FASTING 77 MG/DL (70-100); MAGNESIUM LEVEL 1.8 MG/DL (1.8-2.4); PHOSPHORUS LEVEL 3.3 MG/DL (2.5-4.9); POTASSIUM SERUM 3.3 MEQ/L (3.5-5.1); SODIUM LEVEL 137 MEQ/L (136-145)
[2021-11-07] MEDS: DOCUSATE SOD LIQ 100MG/10ML UDC GT SCH ×2 (09:38→20:47)
[2021-11-07] MEDS: ASPIRIN 81MG ENTERIC TABLET PO SCH (09:38)
[2021-11-07] MEDS: BARICITINIB 2MG TABLET (OLUMIANT) FOR EUA PO SCH (09:39)
[2021-11-07] MEDS: PARoxetine 20MG TABLET PO SCH (09:39)
[2021-11-07] MEDS: APIXABAN 5 MG TAB (ELIQUIS) PO SCH ×2 (09:39→20:48)
[2021-11-07 14:00] VITALS: BP 118/55
[2021-11-07] MEDS: ATORVASTATIN 20 MG TAB PO SCH (20:48)
[2021-11-07 21:00] VITALS: BP 132/58
[2021-11-08 06:02] VITALS: BP 122/74
[2021-11-08] MEDS: ADVAIR HFA 115/21MCG INHALER INH SCH ×2 (07:29→18:29)
[2021-11-08] MEDS: PARoxetine 20MG TABLET PO SCH (10:08)
[2021-11-08] MEDS: ASPIRIN 81MG ENTERIC TABLET PO SCH (10:08)
[2021-11-08] MEDS: BARICITINIB 2MG TABLET (OLUMIANT) FOR EUA PO SCH (10:08)
[2021-11-08] MEDS: APIXABAN 5 MG TAB (ELIQUIS) PO SCH ×2 (10:08→20:25)
[2021-11-08] MEDS: DOCUSATE SOD LIQ 100MG/10ML UDC GT SCH ×2 (10:08→20:25)
[2021-11-08 14:00] VITALS: BP 132/59
[2021-11-08 19:20] VITALS: BP 116/46
[2021-11-08] MEDS: ATORVASTATIN 20 MG TAB PO SCH (20:25)
[2021-11-08 22:00] VITALS: BP 128/57
[2021-11-09 06:00] VITALS: BP 129/58
[2021-11-09] MEDS: ADVAIR HFA 115/21MCG INHALER INH SCH ×2 (07:28→19:22)
[2021-11-09 08:22] LABS: BASO % 0.1 % (0.0-1.0); EOS # 0.1 10^3/uL (0.0-0.5); EOS % 1.4 % (0.0-3.0); HEMATOCRIT 27.3 % (36.0-47.0); HEMOGLOBIN 9.4 g/dl (12.0-15.5); LYMPH # 1.1 10^3/uL (1.5-5.0); LYMPH % 11.5 % (24.0-44.0); MEAN CORPUSCULAR HEMOGLOBIN 29.7 pg (27.0-33.0); MEAN CORPUSCULAR HGB CONC 34.4 g/dl (32.0-36.5); MEAN CORPUSCULAR VOLUME 86.1 fl (80.0-96.0); MONO # 1.1 10^3/uL (0.0-0.8); MONO % 11.5 % (2.0-8.0); NEUTROPHILS # 7.3 10^3/uL (1.5-8.5); NEUTROPHILS % 74.5 % (36.0-66.0); PLATELET COUNT, AUTOMATED 553 10^3/uL (150-450); RED BLOOD COUNT 3.17 10^6/uL (4.00-5.40); WHITE BLOOD COUNT 9.9 10^3/uL (4.0-10.0)
[2021-11-09 09:19] LABS: BLOOD UREA NITROGEN 8 MG/DL (7-18); CALCIUM LEVEL 8.3 MG/DL (8.8-10.2); CARBON DIOXIDE LEVEL 30 MEQ/L (21-32); CHLORIDE LEVEL 99 MEQ/L (98-107); CREATININE FOR GFR 0.42 MG/DL (0.55-1.30); GLOMERULAR FILTRATION RATE > 60.0 (>45); GLUCOSE, FASTING 85 MG/DL (70-100); MAGNESIUM LEVEL 1.9 MG/DL (1.8-2.4); POTASSIUM SERUM 2.9 MEQ/L (3.5-5.1); SODIUM LEVEL 136 MEQ/L (136-145)
[2021-11-09] MEDS: BARICITINIB 2MG TABLET (OLUMIANT) FOR EUA PO SCH (09:36)
[2021-11-09] MEDS: DOCUSATE SOD LIQ 100MG/10ML UDC GT SCH ×2 (09:36→21:01)
[2021-11-09] MEDS: APIXABAN 5 MG TAB (ELIQUIS) PO SCH ×2 (09:37→21:01)
[2021-11-09] MEDS: ASPIRIN 81MG ENTERIC TABLET PO SCH (09:37)
[2021-11-09] MEDS: PARoxetine 20MG TABLET PO SCH (09:37)
[2021-11-09] MEDS: POTASSIUM CHLORIDE 10MEQ SR TABLET PO SCH ×2 (11:28→13:02)
[2021-11-09] MEDS: ATORVASTATIN 20 MG TAB PO SCH (21:01)
[2021-11-10 05:06] VITALS: BP 110/67
[2021-11-10 06:20] LABS: HEMATOCRIT 27.7 % (36.0-47.0); HEMOGLOBIN 9.2 g/dl (12.0-15.5); MEAN CORPUSCULAR HEMOGLOBIN 29.5 pg (27.0-33.0); MEAN CORPUSCULAR HGB CONC 33.2 g/dl (32.0-36.5); MEAN CORPUSCULAR VOLUME 88.8 fl (80.0-96.0); PLATELET COUNT, AUTOMATED 555 10^3/uL (150-450); RED BLOOD COUNT 3.12 10^6/uL (4.00-5.40)
[2021-11-10 07:00] LABS: BLOOD UREA NITROGEN 11 MG/DL (7-18); CALCIUM LEVEL 7.8 MG/DL (8.8-10.2); CARBON DIOXIDE LEVEL 25 MEQ/L (21-32); CHLORIDE LEVEL 99 MEQ/L (98-107); CREATININE FOR GFR 0.37 MG/DL (0.55-1.30); GLOMERULAR FILTRATION RATE > 60.0 (>45); GLUCOSE, FASTING 57 MG/DL (70-100); MAGNESIUM LEVEL 1.8 MG/DL (1.8-2.4); POTASSIUM SERUM 3.8 MEQ/L (3.5-5.1); SODIUM LEVEL 133 MEQ/L (136-145)
[2021-11-10] MEDS: ADVAIR HFA 115/21MCG INHALER INH SCH ×2 (08:19→19:17)
[2021-11-10] MEDS: PARoxetine 20MG TABLET PO SCH (08:53)
[2021-11-10] MEDS: ASPIRIN 81MG ENTERIC TABLET PO SCH (08:53)
[2021-11-10] MEDS: APIXABAN 5 MG TAB (ELIQUIS) PO SCH ×2 (08:53→21:14)
[2021-11-10] MEDS: DOCUSATE SOD LIQ 100MG/10ML UDC GT SCH ×2 (09:00→21:15)
[2021-11-10] MEDS: ATORVASTATIN 20 MG TAB PO SCH (21:15)
[2021-11-11 06:00] VITALS: BP 113/62
[2021-11-11 06:24] LABS: HEMATOCRIT 27.6 % (36.0-47.0); HEMOGLOBIN 9.5 g/dl (12.0-15.5); MEAN CORPUSCULAR HEMOGLOBIN 29.5 pg (27.0-33.0); MEAN CORPUSCULAR HGB CONC 34.4 g/dl (32.0-36.5); MEAN CORPUSCULAR VOLUME 85.7 fl (80.0-96.0); PLATELET COUNT, AUTOMATED 568 10^3/uL (150-450); RED BLOOD COUNT 3.22 10^6/uL (4.00-5.40); WHITE BLOOD COUNT 7.5 10^3/uL (4.0-10.0)
[2021-11-11 06:50] LABS: BLOOD UREA NITROGEN 8 MG/DL (7-18); CALCIUM LEVEL 8.2 MG/DL (8.8-10.2); CARBON DIOXIDE LEVEL 29 MEQ/L (21-32); CHLORIDE LEVEL 98 MEQ/L (98-107); CREATININE FOR GFR 0.42 MG/DL (0.55-1.30); GLOMERULAR FILTRATION RATE > 60.0 (>45); GLUCOSE, FASTING 93 MG/DL (70-100); MAGNESIUM LEVEL 1.6 MG/DL (1.8-2.4); POTASSIUM SERUM 3.3 MEQ/L (3.5-5.1); SODIUM LEVEL 133 MEQ/L (136-145)
[2021-11-11] MEDS: ADVAIR HFA 115/21MCG INHALER INH SCH ×2 (07:27→19:26)
[2021-11-11] MEDS ORDERED: POTASSIUM CHLORIDE 10MEQ SR TABLET PO ONE (08:00)
[2021-11-11] MEDS ORDERED: MAGNESIUM OXIDE 400MG TAB (MAG-OX) PO ONE (08:00)
[2021-11-11] MEDS: DOCUSATE SOD LIQ 100MG/10ML UDC GT SCH ×2 (08:48→21:08)
[2021-11-11] MEDS: PARoxetine 20MG TABLET PO SCH (08:49)
[2021-11-11] MEDS: APIXABAN 5 MG TAB (ELIQUIS) PO SCH ×2 (08:49→21:07)
[2021-11-11] MEDS: ASPIRIN 81MG ENTERIC TABLET PO SCH (08:49)
[2021-11-11] MEDS: ATORVASTATIN 20 MG TAB PO SCH (21:07)
[2021-11-12 06:00] VITALS: BP 108/78
[2021-11-12 06:35] LABS: HEMATOCRIT 27.4 % (36.0-47.0); HEMOGLOBIN 9.3 g/dl (12.0-15.5); MEAN CORPUSCULAR HEMOGLOBIN 29.6 pg (27.0-33.0); MEAN CORPUSCULAR HGB CONC 33.9 g/dl (32.0-36.5); MEAN CORPUSCULAR VOLUME 87.3 fl (80.0-96.0); PLATELET COUNT, AUTOMATED 538 10^3/uL (150-450); RED BLOOD COUNT 3.14 10^6/uL (4.00-5.40); WHITE BLOOD COUNT 6.9 10^3/uL (4.0-10.0)
[2021-11-12 07:17] LABS: BLOOD UREA NITROGEN 7 MG/DL (7-18); CALCIUM LEVEL 7.4 MG/DL (8.8-10.2); CARBON DIOXIDE LEVEL 26 MEQ/L (21-32); CHLORIDE LEVEL 93 MEQ/L (98-107); CREATININE FOR GFR 0.38 MG/DL (0.55-1.30); GLOMERULAR FILTRATION RATE > 60.0 (>45); GLUCOSE, FASTING 83 MG/DL (70-100); MAGNESIUM LEVEL 1.7 MG/DL (1.8-2.4); POTASSIUM SERUM 3.7 MEQ/L (3.5-5.1); SODIUM LEVEL 128 MEQ/L (136-145)
[2021-11-12] MEDS ORDERED: MAGNESIUM OXIDE 400MG TAB (MAG-OX) PO ONE (07:35)
[2021-11-12] MEDS: ADVAIR HFA 115/21MCG INHALER INH SCH ×2 (07:48→19:17)
[2021-11-12] MEDS: APIXABAN 5 MG TAB (ELIQUIS) PO SCH ×2 (09:35→20:27)
[2021-11-12] MEDS: ASPIRIN 81MG ENTERIC TABLET PO SCH (09:35)
[2021-11-12] MEDS: PARoxetine 20MG TABLET PO SCH (09:35)
[2021-11-12] MEDS: POTASSIUM CHLORIDE 10MEQ SR TABLET PO SCH (09:35)
[2021-11-12] MEDS: DOCUSATE SOD LIQ 100MG/10ML UDC GT SCH ×2 (09:35→20:27)
[2021-11-12] MEDS: ATORVASTATIN 20 MG TAB PO SCH (20:27)
[2021-11-12 20:44] VITALS: BP 130/65
[2021-11-13 04:19] VITALS: BP 132/65
[2021-11-13 06:38] LABS: HEMATOCRIT 26.7 % (36.0-47.0); HEMOGLOBIN 9.1 g/dl (12.0-15.5); MEAN CORPUSCULAR HEMOGLOBIN 29.3 pg (27.0-33.0); MEAN CORPUSCULAR HGB CONC 34.1 g/dl (32.0-36.5); MEAN CORPUSCULAR VOLUME 85.9 fl (80.0-96.0); PLATELET COUNT, AUTOMATED 496 10^3/uL (150-450); RED BLOOD COUNT 3.11 10^6/uL (4.00-5.40)
[2021-11-13 07:07] LABS: BLOOD UREA NITROGEN 6 MG/DL (7-18); CALCIUM LEVEL 8.1 MG/DL (8.8-10.2); CARBON DIOXIDE LEVEL 29 MEQ/L (21-32); CHLORIDE LEVEL 93 MEQ/L (98-107); CREATININE FOR GFR 0.42 MG/DL (0.55-1.30); GLOMERULAR FILTRATION RATE > 60.0 (>45); GLUCOSE, FASTING 81 MG/DL (70-100); MAGNESIUM LEVEL 1.5 MG/DL (1.8-2.4); POTASSIUM SERUM 2.9 MEQ/L (3.5-5.1); SODIUM LEVEL 130 MEQ/L (136-145)
[2021-11-13] MEDS: ADVAIR HFA 115/21MCG INHALER INH SCH ×2 (07:42→20:04)
[2021-11-13] MEDS: ASPIRIN 81MG ENTERIC TABLET PO SCH (08:59)
[2021-11-13] MEDS: POTASSIUM CHLORIDE 10MEQ SR TABLET PO SCH ×3 (08:59→21:03)
[2021-11-13] MEDS: DOCUSATE SOD LIQ 100MG/10ML UDC GT SCH ×2 (08:59→21:01)
[2021-11-13] MEDS: PARoxetine 20MG TABLET PO SCH (08:59)
[2021-11-13] MEDS: APIXABAN 5 MG TAB (ELIQUIS) PO SCH ×2 (08:59→21:02)
[2021-11-13 20:00] VITALS: BP 141/66
[2021-11-13] MEDS: ATORVASTATIN 20 MG TAB PO SCH (21:02)
[2021-11-13] MEDS: ACETAMINOPHEN TAB 650MG DOSE (2X325MG) PO PRN (23:13)
[2021-11-14 04:00] VITALS: BP 124/57
[2021-11-14 06:35] LABS: HEMATOCRIT 29.5 % (36.0-47.0); HEMOGLOBIN 9.9 g/dl (12.0-15.5); MEAN CORPUSCULAR HEMOGLOBIN 29.6 pg (27.0-33.0); MEAN CORPUSCULAR HGB CONC 33.6 g/dl (32.0-36.5); MEAN CORPUSCULAR VOLUME 88.1 fl (80.0-96.0); PLATELET COUNT, AUTOMATED 491 10^3/uL (150-450); RED BLOOD COUNT 3.35 10^6/uL (4.00-5.40); WHITE BLOOD COUNT 6.1 10^3/uL (4.0-10.0)
[2021-11-14 07:00] LABS: BLOOD UREA NITROGEN 9 MG/DL (7-18); CALCIUM LEVEL 8.7 MG/DL (8.8-10.2); CARBON DIOXIDE LEVEL 29 MEQ/L (21-32); CHLORIDE LEVEL 100 MEQ/L (98-107); CREATININE FOR GFR 0.45 MG/DL (0.55-1.30); GLOMERULAR FILTRATION RATE > 60.0 (>45); GLUCOSE, FASTING 90 MG/DL (70-100); MAGNESIUM LEVEL 1.7 MG/DL (1.8-2.4); POTASSIUM SERUM 3.6 MEQ/L (3.5-5.1); SODIUM LEVEL 135 MEQ/L (136-145)
[2021-11-14] MEDS: ADVAIR HFA 115/21MCG INHALER INH SCH ×2 (07:55→17:47)
[2021-11-14] MEDS: DOCUSATE SOD LIQ 100MG/10ML UDC GT SCH ×2 (09:04→20:56)
[2021-11-14] MEDS: PARoxetine 20MG TABLET PO SCH (09:04)
[2021-11-14] MEDS: APIXABAN 5 MG TAB (ELIQUIS) PO SCH ×2 (09:05→20:56)
[2021-11-14] MEDS: MAGNESIUM OXIDE 400MG TAB (MAG-OX) PO SCH ×2 (09:05→20:56)
[2021-11-14] MEDS: ASPIRIN 81MG ENTERIC TABLET PO SCH (09:05)
[2021-11-14] MEDS: POTASSIUM CHLORIDE 10MEQ SR TABLET PO SCH (09:05)
[2021-11-14] MEDS: ACETAMINOPHEN TAB 650MG DOSE (2X325MG) PO PRN (20:56)
[2021-11-14] MEDS: ATORVASTATIN 20 MG TAB PO SCH (20:56)
[2021-11-14] MEDS ORDERED: [UNRECOGNIZED DRUG - OTHER] PO SCH (21:00)
[2021-11-15 05:24] VITALS: BP 104/55
[2021-11-15 06:19] LABS: HEMATOCRIT 29.9 % (36.0-47.0); HEMOGLOBIN 9.9 g/dl (12.0-15.5); MEAN CORPUSCULAR HGB CONC 33.1 g/dl (32.0-36.5); MEAN CORPUSCULAR VOLUME 90.6 fl (80.0-96.0); PLATELET COUNT, AUTOMATED 403 10^3/uL (150-450); WHITE BLOOD COUNT 6.2 10^3/uL (4.0-10.0)
[2021-11-15 06:46] LABS: BLOOD UREA NITROGEN 10 MG/DL (7-18); CALCIUM LEVEL 8.6 MG/DL (8.8-10.2); CARBON DIOXIDE LEVEL 25 MEQ/L (21-32); CHLORIDE LEVEL 99 MEQ/L (98-107); CREATININE FOR GFR 0.47 MG/DL (0.55-1.30); GLOMERULAR FILTRATION RATE > 60.0 (>45); GLUCOSE, FASTING 103 MG/DL (70-100); MAGNESIUM LEVEL 1.7 MG/DL (1.8-2.4); POTASSIUM SERUM 3.6 MEQ/L (3.5-5.1); SODIUM LEVEL 132 MEQ/L (136-145)
[2021-11-15] MEDS: ACETAMINOPHEN TAB 650MG DOSE (2X325MG) PO PRN (08:00)
[2021-11-15] MEDS: APIXABAN 5 MG TAB (ELIQUIS) PO SCH ×2 (08:01→20:43)
[2021-11-15] MEDS: POTASSIUM CHLORIDE 10MEQ SR TABLET PO SCH (08:01)
[2021-11-15] MEDS: MAGNESIUM OXIDE 400MG TAB (MAG-OX) PO SCH ×2 (08:01→20:43)
[2021-11-15] MEDS: ASPIRIN 81MG ENTERIC TABLET PO SCH (08:02)
[2021-11-15] MEDS: DOCUSATE SOD LIQ 100MG/10ML UDC GT SCH ×2 (08:02→20:43)
[2021-11-15] MEDS: PARoxetine 20MG TABLET PO SCH (08:03)
[2021-11-15] MEDS: ADVAIR HFA 115/21MCG INHALER INH SCH ×2 (08:16→20:04)
[2021-11-15] MEDS: ATORVASTATIN 20 MG TAB PO SCH (20:43)
[2021-11-15] MEDS: [UNRECOGNIZED DRUG - OTHER] PO SCH (21:44)
[2021-11-16 04:00] VITALS: BP 122/56
[2021-11-16 05:57] VITALS: BP_SYST 102; BP_SYST 105; BP_SYST 75; BP_DIAS 47; BP_DIAS 56; BP_DIAS 59
[2021-11-16] MEDS ORDERED: NS 1,000 ML IV SCH (06:00)
[2021-11-16 07:29] LABS: HEMATOCRIT 26.8 % (36.0-47.0); MEAN CORPUSCULAR HEMOGLOBIN 30.3 pg (27.0-33.0); MEAN CORPUSCULAR HGB CONC 33.6 g/dl (32.0-36.5); MEAN CORPUSCULAR VOLUME 90.2 fl (80.0-96.0); PLATELET COUNT, AUTOMATED 357 10^3/uL (150-450); RED BLOOD COUNT 2.97 10^6/uL (4.00-5.40); WHITE BLOOD COUNT 6.4 10^3/uL (4.0-10.0)
[2021-11-16 07:50] LABS: BLOOD UREA NITROGEN 9 MG/DL (7-18); CALCIUM LEVEL 8.1 MG/DL (8.8-10.2); CARBON DIOXIDE LEVEL 29 MEQ/L (21-32); CHLORIDE LEVEL 101 MEQ/L (98-107); CREATININE FOR GFR 0.53 MG/DL (0.55-1.30); GLOMERULAR FILTRATION RATE > 60.0 (>45); GLUCOSE, FASTING 107 MG/DL (70-100); MAGNESIUM LEVEL 1.8 MG/DL (1.8-2.4); POTASSIUM SERUM 3.4 MEQ/L (3.5-5.1); SODIUM LEVEL 134 MEQ/L (136-145)
[2021-11-16] MEDS: ADVAIR HFA 115/21MCG INHALER INH SCH (08:07)
[2021-11-16] MEDS: DOCUSATE SOD LIQ 100MG/10ML UDC GT SCH (08:07)
[2021-11-16] MEDS: [UNRECOGNIZED DRUG - OTHER] PO SCH (08:51)
[2021-11-16] MEDS: APIXABAN 5 MG TAB (ELIQUIS) PO SCH (08:51)
[2021-11-16] MEDS: PARoxetine 20MG TABLET PO SCH (08:52)
[2021-11-16] MEDS: POTASSIUM CHLORIDE 10MEQ SR TABLET PO SCH (08:52)
[2021-11-16] MEDS: ASPIRIN 81MG ENTERIC TABLET PO SCH (08:52)
[2021-11-16] MEDS: MAGNESIUM OXIDE 400MG TAB (MAG-OX) PO SCH (08:52)
[2021-11-16] MEDS ORDERED: MAGN400T2 PO (09:24)
[2021-11-16] MEDS ORDERED: ATOR1TAB21 PO (09:24)
[2021-11-16] MEDS ORDERED: ADVA115A INH (09:24)
[2021-11-16] MEDS ORDERED: ELIQ5TAB PO (09:24)
[2021-11-16] MEDS ORDERED: VENTAER INH (09:24)
[2021-11-16] MEDS ORDERED: DOCU10ELUD GT (09:24)
[2021-11-16] MEDS ORDERED: POTASSIUM CHLORIDE 10MEQ SR TABLET PO ONE (10:00)
[2021-11-16 11:25] VITALS: BP_SYST 101; BP_SYST 119; BP_SYST 126; BP_DIAS 52; BP_DIAS 56; BP_DIAS 69
== END 2021-11-16 13:20 | DRG 137 ==
LOC: M ED 07:39 → EDBD 07:39 → M ED INP 07:40 → ENRESERV 15:50 → M PCU 18:08 → M ICU 10-27 04:07 → OBSVTOIN 10-27 07:01 → M 4MAIN 10-27 13:00 → M ICU 10-27 22:24 → M MS4PR 11-06 16:28 → M MSPAV 11-06 16:31 → M 4MAIN 11-12 20:34
PROVIDERS: ADMIT Internal Medicine; ATTEND Internal Medicine
PROC: 3E0333Z Introduction of Anti-inflammatory into Peripheral Vein, Percutaneous Approach (ICD-10-PCS; principal; 2021-10-27)
PROC: XW033E5 Introduction of Remdesivir Anti-infective into Peripheral Vein, Percutaneous Approach, New Technology Group 5 (ICD-10-PCS; 2021-10-27)
PROC: 5A1945Z Respiratory Ventilation, 24-96 Consecutive Hours (ICD-10-PCS; 2021-10-28)
PROC: 0BH17EZ Insertion of Endotracheal Airway into Trachea, Via Natural or Artificial Opening (ICD-10-PCS; 2021-10-28)
PROC: 06HM33Z Insertion of Infusion Device into Right Femoral Vein, Percutaneous Approach (ICD-10-PCS; 2021-10-28)
DX: U07.1 COVID-19 (principal); J96.01 Acute respiratory failure with hypoxia; I63.81 Other cerebral infarction due to occlusion or stenosis of small artery; J12.82 Pneumonia due to coronavirus disease 2019; G93.41 Metabolic encephalopathy; J15.9 Unspecified bacterial pneumonia; C80.0 Disseminated malignant neoplasm, unspecified; I95.9 Hypotension, unspecified; I27.20 Pulmonary hypertension, unspecified; J44.0 Chronic obstructive pulmonary disease with (acute) lower respiratory infection; E87.1 Hypo-osmolality and hyponatremia; D73.5 Infarction of spleen; C34.90 Malignant neoplasm of unspecified part of unspecified bronchus or lung; Z92.21 Personal history of antineoplastic chemotherapy; I10 Essential (primary) hypertension; E78.5 Hyperlipidemia, unspecified; F41.9 Anxiety disorder, unspecified; R73.03 Prediabetes; Z90.79 Acquired absence of other genital organ(s); F17.210 Nicotine dependence, cigarettes, uncomplicated; E87.6 Hypokalemia; M25.571 Pain in right ankle and joints of right foot; Z79.82 Long term (current) use of aspirin; Z79.899 Other long term (current) drug therapy; Z72.3 Lack of physical exercise; G81.94 Hemiplegia, unspecified affecting left nondominant side; D64.9 Anemia, unspecified; B96.20 Unspecified Escherichia coli [E. coli] as the cause of diseases classified elsewhere

== ENCOUNTER → 2021-11-19 | Outpatient (REF) | payer OTHER, MEDICAID, BC ==
[~2021-11-19] MED LIST changes: +ADVA115A INH; +DOCU10ELUD GT; +ELIQ5TAB PO; +MAGN400T2 PO
[2021-11-19 12:12] LABS: BLOOD UREA NITROGEN 11 MG/DL (7-18); CALCIUM LEVEL 8.7 MG/DL (8.8-10.2); CARBON DIOXIDE LEVEL 32 MEQ/L (21-32); CHLORIDE LEVEL 101 MEQ/L (98-107); CREATININE FOR GFR 0.63 MG/DL (0.55-1.30); GLOMERULAR FILTRATION RATE > 60.0 (>45); GLUCOSE, FASTING 93 MG/DL (70-100); POTASSIUM SERUM 3.8 MEQ/L (3.5-5.1); SODIUM LEVEL 137 MEQ/L (136-145)
== END ==
LOC: SKLAB3 07:21
PROVIDERS: ATTEND Internal Medicine
DX: I67.9 Cerebrovascular disease, unspecified (principal); I49.9 Cardiac arrhythmia, unspecified; D64.9 Anemia, unspecified; R94.31 Abnormal electrocardiogram [ECG] [EKG]

== ENCOUNTER → 2021-11-22 | Outpatient (REF) | payer OTHER, MEDICAID, BC ==
[2021-11-22 10:36] LABS: BLOOD UREA NITROGEN 11 MG/DL (7-18); CALCIUM LEVEL 9.1 MG/DL (8.8-10.2); CARBON DIOXIDE LEVEL 30 MEQ/L (21-32); CHLORIDE LEVEL 105 MEQ/L (98-107); CREATININE FOR GFR 0.61 MG/DL (0.55-1.30); GLOMERULAR FILTRATION RATE > 60.0 (>45); GLUCOSE, FASTING 83 MG/DL (70-100); MAGNESIUM LEVEL 1.9 MG/DL (1.8-2.4); POTASSIUM SERUM 3.6 MEQ/L (3.5-5.1); SODIUM LEVEL 138 MEQ/L (136-145)
== END ==
LOC: SKLAB3 08:23
PROVIDERS: ATTEND Internal Medicine
DX: E87.8 Other disorders of electrolyte and fluid balance, not elsewhere classified (principal)

== ENCOUNTER → 2021-12-21 | Outpatient (CLI) | payer OTHER ==
[~2021-12-21] MED LIST changes: +ISOVUE-370 76% 100ML VIAL As Ordered ONE
== END ==
LOC: M RAD 15:01
PROVIDERS: ATTEND Specialist
DX: C34.90 Malignant neoplasm of unspecified part of unspecified bronchus or lung (principal); J91.8 Pleural effusion in other conditions classified elsewhere; R91.8 Other nonspecific abnormal finding of lung field
CPT/HCPCS: 71260; Q9967

== ENCOUNTER → 2022-05-10 | Outpatient (CLI) | payer OTHER | LOC: M RAD 16:56 | PROVIDERS: ATTEND Specialist | DX: C34.92 Malignant neoplasm of unspecified part of left bronchus or lung (principal) | CPT/HCPCS: 71260; Q9967 ==

== ENCOUNTER → 2022-09-06 | Outpatient (CLI) | payer OTHER | LOC: M RAD 13:28 | PROVIDERS: ATTEND Specialist | DX: C34.90 Malignant neoplasm of unspecified part of unspecified bronchus or lung (principal) ==

== ENCOUNTER → 2023-01-03 | Outpatient (CLI) | payer OTHER | LOC: M RAD 13:50 | PROVIDERS: ATTEND Specialist | DX: C34.92 Malignant neoplasm of unspecified part of left bronchus or lung (principal); J43.9 Emphysema, unspecified | CPT/HCPCS: 71260; Q9967 ==

== ENCOUNTER → 2023-04-16 | Outpatient (CLI) | payer OTHER ==
[~2023-04-16] MED LIST changes: +PRED5TA PO
== END ==
LOC: M RAD 09:23
PROVIDERS: ATTEND Specialist
DX: C34.90 Malignant neoplasm of unspecified part of unspecified bronchus or lung (principal)
CPT/HCPCS: 71260; Q9967

== ENCOUNTER 2023-08-24 15:29 | Inpatient (IN) | payer OTHER ==
[~2023-08-24] VITALS: Ht 162.6 cm; Wt 69.8 kg
[~2023-08-24 15:29] MED LIST changes: -ISOVUE-370 76% 100ML VIAL As Ordered ONE
[2023-08-24 17:14] LABS: BASO # 0.1 10^3/uL (0.0-0.2); BASO % 0.6 % (0.0-1.0); HEMATOCRIT 42.1 % (36.0-47.0); HEMOGLOBIN 15.2 g/dl (12.0-15.5); LYMPH # 0.7 10^3/uL (1.5-5.0); LYMPH % 7.9 % (24.0-44.0); MEAN CORPUSCULAR HEMOGLOBIN 30.5 pg (27.0-33.0); MEAN CORPUSCULAR HGB CONC 36.1 g/dl (32.0-36.5); MEAN CORPUSCULAR VOLUME 84.4 fl (80.0-96.0); MONO # 0.6 10^3/uL (0.0-0.8); MONO % 6.8 % (2.0-8.0); NEUTROPHILS # 7.4 10^3/uL (1.5-8.5); NEUTROPHILS % 84.1 % (36.0-66.0); PLATELET COUNT, AUTOMATED 447 10^3/uL (150-450); RED BLOOD COUNT 4.99 10^6/uL (4.00-5.40); WHITE BLOOD COUNT 8.8 10^3/uL (4.0-10.0)
[2023-08-24 17:56] LABS: FREE T4 1.11 NG/DL (0.89-1.76); THYROID STIMULATING HORMONE 10.701 uIU/ML (0.55-4.78)
[2023-08-24 17:57] LABS: BLOOD UREA NITROGEN 15 MG/DL (9-23); CALCIUM LEVEL 8.8 MG/DL (8.3-10.6); CARBON DIOXIDE LEVEL 24 MMOL/L (20-31); CHLORIDE LEVEL 86 MMOL/L (98-107); CREATININE FOR GFR 0.81 MG/DL (0.55-1.30); GLOMERULAR FILTRATION RATE > 60.0 (>45); GLUCOSE, FASTING 107 MG/DL (74-106); POTASSIUM SERUM 4.5 MMOL/L (3.5-5.1); SODIUM LEVEL 123 MMOL/L (136-145)
[2023-08-24] MEDS ORDERED: ISOVUE-370 76% 100ML VIAL As Ordered ONE (18:28)
[2023-08-24] MEDS ORDERED: HOME MED LIST COMPLETE! XX SCH (22:20)
[2023-08-24] MEDS ORDERED: ONDANSETRON 4MG 2ML VIAL IV PRN (22:35)
[2023-08-24] MEDS ORDERED: dexAMETHasone 20MG/5ML VIAL IV ONE (23:00)
[2023-08-25 00:20] VITALS: BP 146/72; TEMP 97.9; O2SAT 99
[2023-08-25] MEDS: LR 1,000 ML IV SCH ×3 (00:43→22:10)
[2023-08-25] MEDS: ALBUTEROL 90 MCG/ACT 8GM HFA INHALER INH SCH ×2 (02:00→08:00)
[2023-08-25 06:00] VITALS: BP 112/64; TEMP 97.5; O2SAT 97
[2023-08-25 08:17] LABS: BLOOD UREA NITROGEN 17 MG/DL (9-23); CALCIUM LEVEL 8.5 MG/DL (8.3-10.6); CARBON DIOXIDE LEVEL 30 MMOL/L (20-31); CHLORIDE LEVEL 86 MMOL/L (98-107); CREATININE FOR GFR 0.82 MG/DL (0.55-1.30); GLOMERULAR FILTRATION RATE > 60.0 (>45); GLUCOSE, FASTING 117 MG/DL (74-106); POTASSIUM SERUM 3.5 MMOL/L (3.5-5.1); SODIUM LEVEL 125 MMOL/L (136-145)
[2023-08-25] MEDS ORDERED: ALBUTEROL 90 MCG/ACT 8GM HFA INHALER INH PRN (11:50)
[2023-08-25 14:00] VITALS: BP 146/62; TEMP 97.1; O2SAT 96
[2023-08-25] MEDS: HYDROMORPHONE HCL 0.5 MG/ 0.5 ML SYRINGE IV PRN ×2 (14:57→22:11)
[2023-08-25 20:00] VITALS: BP 127/53; TEMP 97.9; O2SAT 96
[2023-08-25] MEDS ORDERED: NICOTINE 21MG/24HR 1 EA TRANSDERMAL TD SCH (21:00)
[2023-08-26 05:53] VITALS: BP 121/52; TEMP 97.5; O2SAT 89; O2SAT 98
[2023-08-26] MEDS: LR 1,000 ML IV SCH (06:00)
[2023-08-26] MEDS: HYDROMORPHONE HCL 0.5 MG/ 0.5 ML SYRINGE IV PRN (06:44)
[2023-08-26 09:21] LABS: BLOOD UREA NITROGEN 17 MG/DL (9-23); CALCIUM LEVEL 8.5 MG/DL (8.3-10.6); CARBON DIOXIDE LEVEL 32 MMOL/L (20-31); CHLORIDE LEVEL 92 MMOL/L (98-107); GLOMERULAR FILTRATION RATE > 60.0 (>45); GLUCOSE, FASTING 91 MG/DL (74-106); POTASSIUM SERUM 3.6 MMOL/L (3.5-5.1); SODIUM LEVEL 130 MMOL/L (136-145)
[2023-08-26 09:31] LABS: BASO % 0.1 % (0.0-1.0); HEMATOCRIT 36.5 % (36.0-47.0); LYMPH # 0.8 10^3/uL (1.5-5.0); LYMPH % 8.5 % (24.0-44.0); MEAN CORPUSCULAR HEMOGLOBIN 30.1 pg (27.0-33.0); MEAN CORPUSCULAR HGB CONC 34.5 g/dl (32.0-36.5); MEAN CORPUSCULAR VOLUME 87.1 fl (80.0-96.0); MONO # 0.7 10^3/uL (0.0-0.8); MONO % 7.1 % (2.0-8.0); NEUTROPHILS # 7.8 10^3/uL (1.5-8.5); NEUTROPHILS % 83.5 % (36.0-66.0); PLATELET COUNT, AUTOMATED 404 10^3/uL (150-450); RED BLOOD COUNT 4.19 10^6/uL (4.00-5.40); WHITE BLOOD COUNT 9.3 10^3/uL (4.0-10.0)
[2023-08-26 09:34] LABS: HEMOGLOBIN 12.6 g/dl (12.0-15.5)
[2023-08-26] MEDS ORDERED: ASPI81CH33 PO (11:33)
[2023-08-26] MEDS ORDERED: VENTAER INH (11:33)
== END 2023-08-26 15:15 | disposition home or self-care (01) | DRG 110 ==
LOC: M ED 15:29 → M ED INP 15:30 → ENRESERV 23:08 → M MS5PR 08-25 00:20 → OBSVTOIN 08-26 12:45
PROVIDERS: ADMIT Internal Medicine; ATTEND Internal Medicine Nephrology
PROC: 0CB Mouth and Throat, Excision (ICD-10-PCS; principal; 2023-08-24)
PROC: 0CJS8ZZ Inspection of Larynx, Via Natural or Artificial Opening Endoscopic (ICD-10-PCS; 2023-08-24)
DX: C14.0 Malignant neoplasm of pharynx, unspecified (principal); E87.1 Hypo-osmolality and hyponatremia; I27.20 Pulmonary hypertension, unspecified; R13.10 Dysphagia, unspecified; J44.9 Chronic obstructive pulmonary disease, unspecified; F17.210 Nicotine dependence, cigarettes, uncomplicated; Z85.118 Personal history of other malignant neoplasm of bronchus and lung; J45.909 Unspecified asthma, uncomplicated; Z86.73 Personal history of transient ischemic attack (TIA), and cerebral infarction without residual deficits; Z86.16 Personal history of COVID-19

== ENCOUNTER 2023-09-03 10:00 | Emergency (ER) | payer OTHER ==
[~2023-09-03] VITALS: Ht 162.6 cm; Wt 63.8 kg
[~2023-09-03 10:00] MED LIST changes: +ASPI81CH33 PO
[2023-09-03] MEDS ORDERED: dexAMETHasone 4 MG TAB PO ONE (13:25)
[2023-09-03] MEDS ORDERED: DEXA0.5E2 PO (13:58)
[2023-09-03 14:08] VITALS: BP 147/67; TEMP 97; O2SAT 99
== END 2023-09-03 14:14 | disposition home or self-care (01) ==
LOC: M ED 10:00
DX: R13.10 Dysphagia, unspecified (principal); I10 Essential (primary) hypertension; E78.5 Hyperlipidemia, unspecified; Z87.42 Personal history of other diseases of the female genital tract; Z79.52 Long term (current) use of systemic steroids; Z79.82 Long term (current) use of aspirin; Z79.899 Other long term (current) drug therapy

== ENCOUNTER 2023-09-13 16:57 | Inpatient (IN) | payer OTHER ==
[~2023-09-13] VITALS: Ht 160 cm; Wt 64.6 kg
[~2023-09-13 16:57] MED LIST changes: +DEXA0.5E2 PO
[2023-09-13] MEDS ORDERED: ASPI81CH48 PO (17:11)
[2023-09-13] MEDS ORDERED: HYDR-3363 PO (17:11)
[2023-09-13 18:14] LABS: ABG BASE EXCESS 8.2 (-2.0-2.0); ABG HCO3 29.6 MMOL/L (22.0-26.0); ABG O2 SATURATION 97.2 % (95.0-99.0); ABG PARTIAL PRESSURE CO2 31.1 mmHg (35.0-45.0); ABG TOTAL CO2 30.6 MMOL/L (23.0-31.0); ABG pH (ARTERIAL) 7.597 UNITS (7.350-7.450)
[2023-09-13] MEDS ORDERED: LORazepam 2 MG/ML 1ML VIAL IV STA (18:25)
[2023-09-13 18:27] LABS: BASO % 0.4 % (0.0-1.0); EOS % 0.4 % (0.0-3.0); HEMATOCRIT 35.9 % (36.0-47.0); HEMOGLOBIN 12.8 g/dl (12.0-15.5); LYMPH # 1.2 10^3/uL (1.5-5.0); LYMPH % 16.8 % (24.0-44.0); MEAN CORPUSCULAR HEMOGLOBIN 29.7 pg (27.0-33.0); MEAN CORPUSCULAR HGB CONC 35.7 g/dl (32.0-36.5); MEAN CORPUSCULAR VOLUME 83.3 fl (80.0-96.0); MONO # 0.6 10^3/uL (0.0-0.8); MONO % 8.3 % (2.0-8.0); NEUTROPHILS # 5.3 10^3/uL (1.5-8.5); NEUTROPHILS % 73.8 % (36.0-66.0); PLATELET COUNT, AUTOMATED 409 10^3/uL (150-450); RED BLOOD COUNT 4.31 10^6/uL (4.00-5.40); WHITE BLOOD COUNT 7.1 10^3/uL (4.0-10.0)
[2023-09-13] MEDS ORDERED: LORazepam 2 MG/ML 1ML VIAL As Ordered ONE (18:27)
[2023-09-13 18:55] LABS: ETHYL ALCOHOL (ETHANOL) 0.003 % (0.000-0.010)
[2023-09-13 18:57] LABS: SALICYLATE LEVEL < 3.0 MG/DL (<30)
[2023-09-13 18:59] LABS: THYROID STIMULATING HORMONE 3.258 uIU/ML (0.55-4.78)
[2023-09-13 19:31] LABS: ALBUMIN 3.1 G/DL (3.2-5.2); ALKALINE PHOSPHATASE 113 U/L (46-116); ALT/SGPT 13 U/L (7.0-40); AST/SGOT 12 U/L (<34); BILIRUBIN,DIRECT 0.4 MG/DL (<0.4); BILIRUBIN,TOTAL 0.9 MG/DL (0.3-1.2); BLOOD UREA NITROGEN 11 MG/DL (9-23); CALCIUM LEVEL 9.2 MG/DL (8.3-10.6); CARBON DIOXIDE LEVEL 34 MMOL/L (20-31); CHLORIDE LEVEL 93 MMOL/L (98-107); CREATININE FOR GFR 0.62 MG/DL (0.55-1.30); GLOMERULAR FILTRATION RATE > 60.0 (>45); GLUCOSE, FASTING 109 MG/DL (74-106); POTASSIUM SERUM 2.6 MMOL/L (3.5-5.1); SODIUM LEVEL 134 MMOL/L (136-145); TOTAL PROTEIN 6.2 G/DL (5.7-8.2)
[2023-09-13] MEDS ORDERED: ISOVUE-370 76% 100ML VIAL As Ordered ONE (19:37)
[2023-09-13 19:48] LABS: MAGNESIUM LEVEL 1.8 MG/DL (1.8-2.4)
[2023-09-13] MEDS ORDERED: KCL 10MEQ/100ML SWI (KRUN) 10 MEQ in IV 1 EA IV ONE (20:20)
[2023-09-13 21:40] LABS: AMPHETAMINES LEVEL URINE NEGATIVE (NEGATIVE); BARBITURATES URINE NEGATIVE (NEGATIVE); METHADONE URINE NEGATIVE (NEGATIVE); OPIATES URINE NEGATIVE (NEGATIVE); PHENCYCLIDINE URINE NEGATIVE (NEGATIVE)
[2023-09-13 21:42] LABS: BENZODIAZEPINES URINE POSITIVE (NEGATIVE); CANNABINOIDS URINE POSITIVE (NEGATIVE); COCAINE METABOLITE URINE POSITIVE (NEGATIVE)
[2023-09-13] MEDS ORDERED: VENTAER INH (21:48)
[2023-09-13] MEDS ORDERED: DEXA0.5E2 PO (21:48)
[2023-09-13] MEDS ORDERED: HOME MED LIST COMPLETE! XX SCH (21:50)
[2023-09-13] MEDS ORDERED: KCL 10MEQ/100ML SWI (KRUN) 10 MEQ in IV 1 EA IV SCH (22:00)
[2023-09-13] MEDS ORDERED: HALOPERIDOL 5MG/ML 1ML VIAL IM STA (22:08)
[2023-09-13] MEDS ORDERED: SODIUM CHLORIDE 0.9% 1000ML IV SCH (22:10)
[2023-09-13 22:20] LABS: CHLORIDE,RANDOM URINE 37 MMOL/L
[2023-09-13] MEDS: KCL 40MEQ in NS 1000ML 1,000 ML IV SCH (23:02)
[2023-09-13] MEDS: KCL 10MEQ/100ML SWI (KRUN) 10 MEQ in IV 1 EA IV SCH (23:14)
[2023-09-14] MEDS: KCL 10MEQ/100ML SWI (KRUN) 10 MEQ in IV 1 EA IV SCH ×3 (01:51→04:39)
[2023-09-14] MEDS: KCL 40MEQ in NS 1000ML 1,000 ML IV SCH ×3 (04:41→22:20)
[2023-09-14] MEDS: HEPARIN SOD (PORCINE) 5000UNITS/ML 1ML VIAL/SYRINGE SC SCH ×3 (06:58→22:00)
[2023-09-14 08:19] LABS: BLOOD UREA NITROGEN 8 MG/DL (9-23); CALCIUM LEVEL 7.7 MG/DL (8.3-10.6); CARBON DIOXIDE LEVEL 29 MMOL/L (20-31); CHLORIDE LEVEL 102 MMOL/L (98-107); CREATININE FOR GFR 0.54 MG/DL (0.55-1.30); GLOMERULAR FILTRATION RATE > 60.0 (>45); GLUCOSE, FASTING 89 MG/DL (74-106); MAGNESIUM LEVEL 1.6 MG/DL (1.8-2.4); POTASSIUM SERUM 3.1 MMOL/L (3.5-5.1); SODIUM LEVEL 138 MMOL/L (136-145)
[2023-09-14 09:38] LABS: ABG BASE EXCESS 1.2 (-2.0-2.0); ABG HCO3 23.7 MMOL/L (22.0-26.0); ABG O2 SATURATION 94.4 % (95.0-99.0); ABG PARTIAL PRESSURE CO2 30.5 mmHg (35.0-45.0); ABG PARTIAL PRESSURE O2 73.6 mmHg (75.0-100.0); ABG STANDARD HCO3 25.5 MMOL/L. (22.0-26.0); ABG TOTAL CO2 24.6 MMOL/L (23.0-31.0); ABG pH (ARTERIAL) 7.508 UNITS (7.350-7.450)
[2023-09-14] MEDS: MAG SULF 1GM/100ML (MAG RUN) 1 GM in IV 1 EA IV SCH ×3 (10:50→13:54)
[2023-09-14 14:57] VITALS: BP 122/54; TEMP 97.5; O2SAT 100
[2023-09-14 15:44] VITALS: BP 115/62; TEMP 96.6; O2SAT 97
[2023-09-14 18:29] LABS: BLOOD UREA NITROGEN 6 MG/DL (9-23); CALCIUM LEVEL 8.1 MG/DL (8.3-10.6); CARBON DIOXIDE LEVEL 24 MMOL/L (20-31); CHLORIDE LEVEL 103 MMOL/L (98-107); GLOMERULAR FILTRATION RATE > 60.0 (>45); GLUCOSE, FASTING 101 MG/DL (74-106); POTASSIUM SERUM 3.4 MMOL/L (3.5-5.1); SODIUM LEVEL 136 MMOL/L (136-145)
[2023-09-14 19:17] LABS: MAGNESIUM LEVEL 2.5 MG/DL (1.8-2.4)
[2023-09-14 20:00] VITALS: BP 131/60; TEMP 97.4; O2SAT 98
[2023-09-15] VITALS (7 sets, daily range): BP systolic 122–138; BP diastolic 59–83; TEMP 96.2–97.8; O2SAT 93–99
[2023-09-15] MEDS ORDERED: HALOPERIDOL 5MG/ML 1ML VIAL IM PRN ×2 (01:05→09:00)
[2023-09-15] MEDS ORDERED: HALOPERIDOL 5MG/ML 1ML VIAL IM ONE (03:20)
[2023-09-15] MEDS ORDERED: NICOTINE 21MG/24HR 1 EA TRANSDERMAL TD ONE (03:40)
[2023-09-15] MEDS: HEPARIN SOD (PORCINE) 5000UNITS/ML 1ML VIAL/SYRINGE SC SCH ×3 (05:38→21:18)
[2023-09-15 06:38] LABS: BASO % 0.5 % (0.0-1.0); EOS # 0.1 10^3/uL (0.0-0.5); EOS % 2.3 % (0.0-3.0); HEMATOCRIT 30.2 % (36.0-47.0); LYMPH # 1.1 10^3/uL (1.5-5.0); LYMPH % 19.9 % (24.0-44.0); MEAN CORPUSCULAR HEMOGLOBIN 29.8 pg (27.0-33.0); MEAN CORPUSCULAR HGB CONC 35.1 g/dl (32.0-36.5); MEAN CORPUSCULAR VOLUME 84.8 fl (80.0-96.0); MONO # 0.5 10^3/uL (0.0-0.8); NEUTROPHILS # 3.9 10^3/uL (1.5-8.5); NEUTROPHILS % 68.8 % (36.0-66.0); PLATELET COUNT, AUTOMATED 373 10^3/uL (150-450); RED BLOOD COUNT 3.56 10^6/uL (4.00-5.40); WHITE BLOOD COUNT 5.7 10^3/uL (4.0-10.0)
[2023-09-15 06:41] LABS: HEMOGLOBIN 10.6 g/dl (12.0-15.5)
[2023-09-15 06:54] LABS: BLOOD UREA NITROGEN < 5 MG/DL (9-23); CALCIUM LEVEL 8.2 MG/DL (8.3-10.6); CARBON DIOXIDE LEVEL 24 MMOL/L (20-31); CHLORIDE LEVEL 100 MMOL/L (98-107); CREATININE FOR GFR 0.45 MG/DL (0.55-1.30); GLOMERULAR FILTRATION RATE > 60.0 (>45); GLUCOSE, FASTING 100 MG/DL (74-106); POTASSIUM SERUM 3.1 MMOL/L (3.5-5.1); SODIUM LEVEL 133 MMOL/L (136-145)
[2023-09-15] MEDS: KCL 40MEQ in NS 1000ML 1,000 ML IV SCH ×4 (07:31→23:20)
[2023-09-15] MEDS: KCL 10MEQ/100ML SWI (KRUN) 10 MEQ in IV 1 EA IV SCH ×3 (08:02→10:53)
[2023-09-15] MEDS ORDERED: POTASSIUM CHLORIDE 10% LIQ 20MEQ/15ML UDC PO ONE (09:00)
[2023-09-15] MEDS ORDERED: LORazepam 2 MG/ML 1ML VIAL IV ONE ×2 (11:20→13:10)
[2023-09-15] MEDS ORDERED: HALOPERIDOL 5MG/ML 1ML VIAL IV ONE (16:50)
[2023-09-16] VITALS (9 sets, daily range): BP systolic 102–121; BP diastolic 50–58; TEMP 96.5–98.8; O2SAT 97–100
[2023-09-16] MEDS: ALBUTEROL SULFATE 2.5MG/0.5ML INH NEB SOLN NEB PRN ×3 (00:47→05:29)
[2023-09-16] MEDS: HEPARIN SOD (PORCINE) 5000UNITS/ML 1ML VIAL/SYRINGE SC SCH ×3 (05:07→21:04)
[2023-09-16 05:37] LABS: ABG BASE EXCESS -0.9 (-2.0-2.0); ABG HCO3 20.1 MMOL/L (22.0-26.0); ABG O2 SATURATION 98.3 % (95.0-99.0); ABG PARTIAL PRESSURE CO2 23.3 mmHg (35.0-45.0); ABG PARTIAL PRESSURE O2 123.4 mmHg (75.0-100.0); ABG STANDARD HCO3 23.8 MMOL/L. (22.0-26.0); ABG TOTAL CO2 20.8 MMOL/L (23.0-31.0); ABG pH (ARTERIAL) 7.553 UNITS (7.350-7.450)
[2023-09-16] MEDS: KCL 40MEQ in NS 1000ML 1,000 ML IV SCH ×2 (05:59→09:05)
[2023-09-16] MEDS ORDERED: KCL 10MEQ/100ML SWI (KRUN) 10 MEQ in IV 1 EA IV SCH (08:00)
[2023-09-16] MEDS ORDERED: POTASSIUM CHLORIDE 10MEQ SR TABLET PO ONE ×2 (08:45→11:00)
[2023-09-16] MEDS ORDERED: LORazepam 0.5 MG TAB PO ONE ×2 (09:00→16:50)
[2023-09-16] MEDS: NICOTINE 14 MG/24 HR TRANSDERMAL TD SCH (09:08)
[2023-09-16 15:33] LABS: HEMATOCRIT 32.5 % (36.0-47.0); HEMOGLOBIN 11.1 g/dl (12.0-15.5); MEAN CORPUSCULAR HEMOGLOBIN 29.5 pg (27.0-33.0); MEAN CORPUSCULAR HGB CONC 34.2 g/dl (32.0-36.5); MEAN CORPUSCULAR VOLUME 86.4 fl (80.0-96.0); PLATELET COUNT, AUTOMATED 417 10^3/uL (150-450); RED BLOOD COUNT 3.76 10^6/uL (4.00-5.40); WHITE BLOOD COUNT 6.3 10^3/uL (4.0-10.0)
[2023-09-16 15:38] LABS: ERYTHROCYTE SEDIMENTATION RATE 16 mm/hr (0-30)
[2023-09-16 15:59] LABS: ACETONE/KETONE 0.15 MMOL/L (0.02-0.27)
[2023-09-16 16:05] LABS: ALBUMIN 2.6 G/DL (3.2-5.2); ALKALINE PHOSPHATASE 113 U/L (46-116); ALT/SGPT 18 U/L (7.0-40); AST/SGOT 27 U/L (<34); BILIRUBIN,DIRECT 0.3 MG/DL (<0.4); BILIRUBIN,TOTAL 0.8 MG/DL (0.3-1.2); BLOOD UREA NITROGEN 5 MG/DL (9-23); CALCIUM LEVEL 8.6 MG/DL (8.3-10.6); CARBON DIOXIDE LEVEL 21 MMOL/L (20-31); CHLORIDE LEVEL 106 MMOL/L (98-107); CREATININE FOR GFR 0.59 MG/DL (0.55-1.30); GLOMERULAR FILTRATION RATE > 60.0 (>45); GLUCOSE, FASTING 104 MG/DL (74-106); POTASSIUM SERUM 4.6 MMOL/L (3.5-5.1); PROCALCITONIN 0.08 ng/ml; SODIUM LEVEL 135 MMOL/L (136-145); TOTAL PROTEIN 5.4 G/DL (5.7-8.2)
[2023-09-16] MEDS ORDERED: PROHANCE 279.3MG/ML 15ML VIAL As Ordered ONE (17:14)
[2023-09-17 03:46] VITALS: BP 120/58; TEMP 97.6; O2SAT 99
[2023-09-17 04:45] LABS: VENOUS BASE EXCESS -1.6 (-2.0-2.0); VENOUS HCO3 20.5 MMOL/L (23.0-27.0); VENOUS O2 SATURATION 95.2 % (60.0-80.0); VENOUS PARTIAL PRESSURE CO2 26.9 mmHg (38.0-50.0); VENOUS PARTIAL PRESSURE O2 79.9 mmHg (30.0-50.0); VENOUS PH 7.499 UNITS (7.330-7.430); VENOUS STANDARD HCO3 23.1 MMOL/L; VENOUS TOTAL CO2 21.3 MMOL/L (24.0-28.0)
[2023-09-17 04:52] LABS: BASO % 0.4 % (0.0-1.0); EOS # 0.1 10^3/uL (0.0-0.5); EOS % 1.9 % (0.0-3.0); HEMATOCRIT 31.1 % (36.0-47.0); HEMOGLOBIN 10.6 g/dl (12.0-15.5); LYMPH # 1.4 10^3/uL (1.5-5.0); LYMPH % 20.4 % (24.0-44.0); MEAN CORPUSCULAR HEMOGLOBIN 29.1 pg (27.0-33.0); MEAN CORPUSCULAR HGB CONC 34.1 g/dl (32.0-36.5); MEAN CORPUSCULAR VOLUME 85.4 fl (80.0-96.0); MONO # 0.6 10^3/uL (0.0-0.8); MONO % 8.7 % (2.0-8.0); NEUTROPHILS # 4.7 10^3/uL (1.5-8.5); NEUTROPHILS % 67.9 % (36.0-66.0); PLATELET COUNT, AUTOMATED 348 10^3/uL (150-450); RED BLOOD COUNT 3.64 10^6/uL (4.00-5.40); WHITE BLOOD COUNT 6.9 10^3/uL (4.0-10.0)
[2023-09-17] MEDS: ALBUTEROL SULFATE 2.5MG/0.5ML INH NEB SOLN NEB PRN (05:15)
[2023-09-17 05:25] LABS: BLOOD UREA NITROGEN < 5 MG/DL (9-23); CALCIUM LEVEL 8.4 MG/DL (8.3-10.6); CARBON DIOXIDE LEVEL 22 MMOL/L (20-31); CHLORIDE LEVEL 106 MMOL/L (98-107); CREATININE FOR GFR 0.69 MG/DL (0.55-1.30); GLOMERULAR FILTRATION RATE > 60.0 (>45); GLUCOSE, FASTING 92 MG/DL (74-106); POTASSIUM SERUM 4.3 MMOL/L (3.5-5.1); SODIUM LEVEL 135 MMOL/L (136-145)
[2023-09-17] MEDS: HEPARIN SOD (PORCINE) 5000UNITS/ML 1ML VIAL/SYRINGE SC SCH ×3 (05:27→21:15)
[2023-09-17 08:12] VITALS: BP 135/60; TEMP 97.8; O2SAT 95
[2023-09-17] MEDS: NICOTINE 14 MG/24 HR TRANSDERMAL TD SCH (09:08)
[2023-09-17 12:17] VITALS: BP 143/63; TEMP 97.8; O2SAT 96
[2023-09-17 16:53] VITALS: BP 105/52; TEMP 97.9; O2SAT 99
[2023-09-17 19:32] VITALS: BP 124/58; TEMP 97; O2SAT 100
[2023-09-17 23:00] VITALS: BP 138/64; TEMP 96.8; O2SAT 100
[2023-09-18 04:00] VITALS: BP 126/58; TEMP 96.6; TEMP 97; O2SAT 100
[2023-09-18] MEDS: HEPARIN SOD (PORCINE) 5000UNITS/ML 1ML VIAL/SYRINGE SC SCH ×3 (06:10→22:30)
[2023-09-18 08:19] VITALS: BP 123/58; TEMP 97.2; O2SAT 99
[2023-09-18] MEDS: NICOTINE 14 MG/24 HR TRANSDERMAL TD SCH (09:13)
[2023-09-18 10:00] VITALS: BP 116/53; TEMP 97.5; O2SAT 100
[2023-09-18 14:22] LABS: HEMATOCRIT 32.3 % (36.0-47.0); HEMOGLOBIN 11.1 g/dl (12.0-15.5); MEAN CORPUSCULAR HEMOGLOBIN 29.1 pg (27.0-33.0); MEAN CORPUSCULAR HGB CONC 34.4 g/dl (32.0-36.5); MEAN CORPUSCULAR VOLUME 84.8 fl (80.0-96.0); PLATELET COUNT, AUTOMATED 385 10^3/uL (150-450); RED BLOOD COUNT 3.81 10^6/uL (4.00-5.40); WHITE BLOOD COUNT 6.7 10^3/uL (4.0-10.0)
[2023-09-18] MEDS: THIAMINE 100 MG TAB PO SCH (14:25)
[2023-09-18 15:04] LABS: BLOOD UREA NITROGEN 10 MG/DL (9-23); CARBON DIOXIDE LEVEL 22 MMOL/L (20-31); CHLORIDE LEVEL 103 MMOL/L (98-107); GLOMERULAR FILTRATION RATE > 60.0 (>45); GLUCOSE, FASTING 95 MG/DL (74-106); POTASSIUM SERUM 4.2 MMOL/L (3.5-5.1); SODIUM LEVEL 134 MMOL/L (136-145)
[2023-09-18 19:44] VITALS: BP 137/75; TEMP 98.6; O2SAT 100
[2023-09-18] MEDS ORDERED: ACETAMINOPHEN 500 MG TAB PO ONE (23:00)
[2023-09-19] MEDS ORDERED: LIDOCAINE 5% (LIDODERM) PATCH TD ONE (06:00)
[2023-09-19] MEDS: HEPARIN SOD (PORCINE) 5000UNITS/ML 1ML VIAL/SYRINGE SC SCH ×2 (06:02→14:42)
[2023-09-19 07:11] VITALS: BP 111/58; TEMP 97.1; O2SAT 100
[2023-09-19] MEDS: NICOTINE 14 MG/24 HR TRANSDERMAL TD SCH (08:22)
[2023-09-19] MEDS: THIAMINE 100 MG TAB PO SCH (08:22)
[2023-09-19] MEDS ORDERED: THIA100TA PO ×2 (11:32→11:37)
[2023-09-19] MEDS ORDERED: ACETAMINOPHEN 500 MG TAB PO PRN (12:05)
[2023-09-19 14:00] VITALS: BP 117/59; TEMP 97.7; O2SAT 95
[2023-09-21] MEDS ORDERED: HYDR10CA2 PO (13:55)
[2023-09-22] MEDS ORDERED: HYDR-4517 PO (08:22)
[2023-09-22] MEDS ORDERED: HYDR-3713 PO (09:46)
== END 2023-09-19 15:35 | disposition home health service (06) | DRG 52 ==
LOC: M ED 16:57 → M ED INP 21:58 → ENRESERV 09-14 14:13 → M PCU 09-14 14:49 → M MS5PR 09-18 10:16
PROVIDERS: ADMIT Internal Medicine; ATTEND Student in an Organized Health Care Education/Training Program
DX: G93.41 Metabolic encephalopathy (principal); E87.29 Other acidosis; J44.0 Chronic obstructive pulmonary disease with (acute) lower respiratory infection; E83.42 Hypomagnesemia; R13.12 Dysphagia, oropharyngeal phase; C14.0 Malignant neoplasm of pharynx, unspecified; M54.50 Low back pain, unspecified; J45.909 Unspecified asthma, uncomplicated; F14.10 Cocaine abuse, uncomplicated; J20.4 Acute bronchitis due to parainfluenza virus; F12.10 Cannabis abuse, uncomplicated; E87.6 Hypokalemia; F17.200 Nicotine dependence, unspecified, uncomplicated; Z85.118 Personal history of other malignant neoplasm of bronchus and lung; Z86.16 Personal history of COVID-19; Z79.82 Long term (current) use of aspirin

== ENCOUNTER 2023-10-02 12:00 | Outpatient (RCR) | payer OTHER ==
[~2023-10-02 12:00] MED LIST changes: +ASPI81CH48 PO; +BACT400T PO; +HYDR-3363 PO; +HYDR-3713 PO; +HYDR-4517 PO; +HYDR10CA2 PO; +MORP1SOL5 PO; +THIA100TA PO
[2023-10-06] MEDS ORDERED: CYCL5TAB PO (13:12)
[2023-10-13] MEDS ORDERED: ATIV1TAB10 PO (12:28)
[2023-10-13] MEDS ORDERED: ONDA4TAB6 PO (13:11)
== END 2023-10-20 ==
LOC: M ONCR 12:00
PROVIDERS: ATTEND General Practice
DX: Z51.0 Encounter for antineoplastic radiation therapy (principal); C32.1 Malignant neoplasm of supraglottis

== ENCOUNTER 2023-10-13 17:52 | Inpatient (IN) | payer OTHER ==
[2023-10-13] VITALS (20 sets, daily range): BP systolic 94–138; BP diastolic 51–73; TEMP 98.7; O2SAT 88–100
[~2023-10-13] VITALS: Ht 157.5 cm; Wt 59.2 kg
[~2023-10-13 17:52] MED LIST changes: +ATIV1TAB10 PO; +CYCL5TAB PO; +ONDA4TAB6 PO
[2023-10-13] MEDS: ETOMIDATE INJ 20MG/10ML VIAL IV ONE (18:39)
[2023-10-13] MEDS: ROCURONIUM BROMIDE 50MG/5ML VIAL IV ONE (18:39)
[2023-10-13] MEDS: propofoL 1,000 MG in IV 1 EA IV SCH ×2 (18:41→19:20)
[2023-10-13 19:07] LABS: ABG BASE EXCESS 2.3 (-2.0-2.0); ABG HCO3 27.2 MMOL/L (22.0-26.0); ABG O2 SATURATION 99.7 % (95.0-99.0); ABG PARTIAL PRESSURE CO2 43.5 mmHg (35.0-45.0); ABG PARTIAL PRESSURE O2 377.3 mmHg (75.0-100.0); ABG STANDARD HCO3 26.6 MMOL/L. (22.0-26.0); ABG TOTAL CO2 28.5 MMOL/L (23.0-31.0); ABG pH (ARTERIAL) 7.414 UNITS (7.350-7.450)
[2023-10-13 19:08] LABS: BASO % 0.1 % (0.0-1.0); HEMATOCRIT 33.2 % (36.0-47.0); HEMOGLOBIN 11.6 g/dl (12.0-15.5); LYMPH # 0.6 10^3/uL (1.5-5.0); LYMPH % 3.9 % (24.0-44.0); MEAN CORPUSCULAR HEMOGLOBIN 30.2 pg (27.0-33.0); MEAN CORPUSCULAR HGB CONC 34.9 g/dl (32.0-36.5); MEAN CORPUSCULAR VOLUME 86.5 fl (80.0-96.0); MONO # 0.9 10^3/uL (0.0-0.8); NEUTROPHILS # 13.1 10^3/uL (1.5-8.5); NEUTROPHILS % 89.5 % (36.0-66.0); PLATELET COUNT, AUTOMATED 446 10^3/uL (150-450); RED BLOOD COUNT 3.84 10^6/uL (4.00-5.40); WHITE BLOOD COUNT 14.7 10^3/uL (4.0-10.0)
[2023-10-13 19:40] LABS: BLOOD UREA NITROGEN 11 MG/DL (9-23); CALCIUM LEVEL 8.1 MG/DL (8.3-10.6); CARBON DIOXIDE LEVEL 27 MMOL/L (20-31); CHLORIDE LEVEL 74 MMOL/L (98-107); GLOMERULAR FILTRATION RATE > 60.0 (>45); GLUCOSE, FASTING 136 MG/DL (74-106); POTASSIUM SERUM 3.2 MMOL/L (3.5-5.1); SODIUM LEVEL 112 MMOL/L (136-145)
[2023-10-13 19:40] LABS: AMPHETAMINES LEVEL URINE NEGATIVE (NEGATIVE); BARBITURATES URINE NEGATIVE (NEGATIVE); BENZODIAZEPINES URINE NEGATIVE (NEGATIVE); METHADONE URINE NEGATIVE (NEGATIVE); PHENCYCLIDINE URINE NEGATIVE (NEGATIVE)
[2023-10-13] MEDS ORDERED: FENTANYL DRIP LOCK BOX KEY 1 EACH XX PRN (19:40)
[2023-10-13] MEDS ORDERED: PIPERACILLIN/TAZOBACTAM SOD 2.25 GM in D5W MINI-BAG PLUS 50 ML IV SCH (19:40)
[2023-10-13] MEDS ORDERED: VANCOMYCIN HCL 890 MG in IV FLUID PLACE HOLDER 1 EA IV SCH (19:40)
[2023-10-13 19:41] LABS: CANNABINOIDS URINE POSITIVE (NEGATIVE); COCAINE METABOLITE URINE POSITIVE (NEGATIVE); OPIATES URINE POSITIVE (NEGATIVE)
[2023-10-13] MEDS ORDERED: ISOVUE-370 76% 100ML VIAL As Ordered ONE (20:00)
[2023-10-13] MEDS ORDERED: fentaNYL CITRATE/NaCl 1,000 MCG in IV 1 EA IV SCH (20:00)
[2023-10-13] MEDS: PANTOPRAZOLE 40MG VIAL IV SCH (20:37)
[2023-10-13] MEDS: NS 1,000 ML IV SCH (20:38)
[2023-10-13] MEDS: methylPREDNISolone 125MG 2ML VIAL IV ONE (20:38)
[2023-10-13] MEDS: MAG SULF 1GM/100ML (MAG RUN) 1 GM in IV 1 EA IV ONE (20:38)
[2023-10-13] MEDS: KCL 10MEQ/100ML SWI (KRUN) 10 MEQ in IV 1 EA IV SCH (22:29)
[2023-10-13] MEDS: VANCOMYCIN HCL 1,000 MG, VIAL MATE ADAPTER 1 EACH in D5W 250 ML IV ONE (22:30)
[2023-10-13] MEDS: AZITHROMYCIN INJ 500 MG, VIAL MATE ADAPTER 1 EACH in NS 250 ML IV SCH (23:31)
[2023-10-14] VITALS (43 sets, daily range): BP systolic 75–120; BP diastolic 50–71; TEMP 97–97.9; O2SAT 89–100
[2023-10-14 00:02] LABS: BLOOD UREA NITROGEN 9 MG/DL (9-23); CALCIUM LEVEL 7.5 MG/DL (8.3-10.6); CARBON DIOXIDE LEVEL 30 MMOL/L (20-31); CHLORIDE LEVEL 76 MMOL/L (98-107); GLOMERULAR FILTRATION RATE > 60.0 (>45); GLUCOSE, FASTING 178 MG/DL (74-106); PHOSPHORUS LEVEL 3.6 MG/DL (2.4-5.1); POTASSIUM SERUM 2.9 MMOL/L (3.5-5.1); SODIUM LEVEL 112 MMOL/L (136-145)
[2023-10-14] MEDS: PIPERACILLIN/TAZOBACTAM SOD 3.375 GM in D5W MINI-BAG PLUS 50 ML IV SCH (00:40)
[2023-10-14] MEDS ORDERED: MIDAZOLAM 100MG/100ML-0.9%NACL 100 MG in IV 1 EA IV SCH (01:45)
[2023-10-14] MEDS: NOREPINEPHRINE 4MG IN D5 250ML 4 MG in IV 1 EA IV SCH (01:55)
[2023-10-14] MEDS: MIDAZOLAM 100MG/100ML-0.9%NACL 100 MG in IV 1 EA IV SCH (02:07)
[2023-10-14 04:11] LABS: BLOOD UREA NITROGEN 9 MG/DL (9-23); CALCIUM LEVEL 7.2 MG/DL (8.3-10.6); CARBON DIOXIDE LEVEL 26 MMOL/L (20-31); CHLORIDE LEVEL 83 MMOL/L (98-107); CREATININE FOR GFR 0.46 MG/DL (0.55-1.30); GLOMERULAR FILTRATION RATE > 60.0 (>45); GLUCOSE, FASTING 144 MG/DL (74-106); POTASSIUM SERUM 4.3 MMOL/L (3.5-5.1); SODIUM LEVEL 112 MMOL/L (136-145)
[2023-10-14] MEDS ORDERED: SODIUM CHLORIDE 3% 500 ML IV ONE (04:20)
[2023-10-14] MEDS: VANCOMYCIN HCL 1,000 MG, VIAL MATE ADAPTER 1 EACH in D5W 250 ML IV SCH (06:29)
[2023-10-14 07:31] LABS: BASO % 0.2 % (0.0-1.0); EOS # 0.3 10^3/uL (0.0-0.5); EOS % 2.8 % (0.0-3.0); HEMATOCRIT 31.6 % (36.0-47.0); HEMOGLOBIN 11.2 g/dl (12.0-15.5); LYMPH # 0.6 10^3/uL (1.5-5.0); LYMPH % 6.3 % (24.0-44.0); MEAN CORPUSCULAR HEMOGLOBIN 30.4 pg (27.0-33.0); MEAN CORPUSCULAR HGB CONC 35.4 g/dl (32.0-36.5); MEAN CORPUSCULAR VOLUME 85.9 fl (80.0-96.0); MONO # 0.4 10^3/uL (0.0-0.8); NEUTROPHILS # 7.5 10^3/uL (1.5-8.5); NEUTROPHILS % 85.2 % (36.0-66.0); RED BLOOD COUNT 3.68 10^6/uL (4.00-5.40); WHITE BLOOD COUNT 8.8 10^3/uL (4.0-10.0)
[2023-10-14 07:34] LABS: PLATELET COUNT, AUTOMATED 346 10^3/uL (150-450)
[2023-10-14 07:56] LABS: ALBUMIN 2.1 G/DL (3.2-5.2); ALKALINE PHOSPHATASE 127 U/L (46-116); ALT/SGPT 32 U/L (7.0-40); AST/SGOT 122 U/L (<34); BILIRUBIN,TOTAL 1.1 MG/DL (0.3-1.2); BLOOD UREA NITROGEN 8 MG/DL (9-23); CALCIUM LEVEL 7.4 MG/DL (8.3-10.6); CARBON DIOXIDE LEVEL 26 MMOL/L (20-31); CHLORIDE LEVEL 84 MMOL/L (98-107); GLOMERULAR FILTRATION RATE > 60.0 (>45); GLUCOSE, FASTING 141 MG/DL (74-106); MAGNESIUM LEVEL 1.6 MG/DL (1.8-2.4); POTASSIUM SERUM 4.3 MMOL/L (3.5-5.1); SODIUM LEVEL 113 MMOL/L (136-145); TOTAL PROTEIN 4.9 G/DL (5.7-8.2)
[2023-10-14] MEDS ORDERED: HOME MED LIST COMPLETE! XX SCH (08:00)
[2023-10-14] MEDS: MAG SULF 1GM/100ML (MAG RUN) 1 GM in IV 1 EA IV ONE (08:42)
[2023-10-14] MEDS: ENOXAPARIN 40MG/0.4ML SYRINGE (J1650 PER 10MG) SC SCH (08:50)
[2023-10-14] MEDS: methylPREDNISolone 125MG 2ML VIAL IV SCH (08:50)
[2023-10-14 12:11] LABS: BLOOD UREA NITROGEN 8 MG/DL (9-23); CALCIUM LEVEL 7.8 MG/DL (8.3-10.6); CARBON DIOXIDE LEVEL 28 MMOL/L (20-31); CHLORIDE LEVEL 88 MMOL/L (98-107); CREATININE FOR GFR 0.49 MG/DL (0.55-1.30); GLOMERULAR FILTRATION RATE > 60.0 (>45); GLUCOSE, FASTING 129 MG/DL (74-106); POTASSIUM SERUM 4.1 MMOL/L (3.5-5.1); SODIUM LEVEL 119 MMOL/L (136-145)
[2023-10-14] MEDS: dexmedeTOMidine 200 MCG in IV 1 EA IV SCH (15:04)
[2023-10-14] MEDS: MIDAZOLAM INJ 2MG/2ML VIAL IV ONE (20:01)
[2023-10-14] MEDS: MIDAZOLAM INJ 2MG/2ML VIAL IV STA (22:04)
[2023-10-15] VITALS (23 sets, daily range): BP systolic 90–127; BP diastolic 49–71; TEMP 96.8–97.5; O2SAT 88–100
[2023-10-15] MEDS: MIDAZOLAM INJ 2MG/2ML VIAL IV ONE (01:17)
[2023-10-15 06:27] LABS: BLOOD UREA NITROGEN 6 MG/DL (9-23); CALCIUM LEVEL 7.5 MG/DL (8.3-10.6); CARBON DIOXIDE LEVEL 26 MMOL/L (20-31); CHLORIDE LEVEL 96 MMOL/L (98-107); CREATININE FOR GFR 0.46 MG/DL (0.55-1.30); GLOMERULAR FILTRATION RATE > 60.0 (>45); GLUCOSE, FASTING 126 MG/DL (74-106); MAGNESIUM LEVEL 1.8 MG/DL (1.8-2.4); POTASSIUM SERUM 3.9 MMOL/L (3.5-5.1); SODIUM LEVEL 126 MMOL/L (136-145)
[2023-10-15] MEDS: MIDAZOLAM INJ 2MG/2ML VIAL IV STA (08:45)
[2023-10-15] MEDS: D5W 1,000 ML IV ONE (10:37)
[2023-10-15] MEDS: propofoL 1,000 MG in IV 1 EA IV SCH (11:23)
[2023-10-15] MEDS: HEPARIN DRIP 25,000 UNITS in IV 1 EA IV SCH (11:51)
[2023-10-15 14:44] LABS: BLOOD UREA NITROGEN 7 MG/DL (9-23); CALCIUM LEVEL 7.6 MG/DL (8.3-10.6); CARBON DIOXIDE LEVEL 25 MMOL/L (20-31); CHLORIDE LEVEL 98 MMOL/L (98-107); CREATININE FOR GFR 0.44 MG/DL (0.55-1.30); GLOMERULAR FILTRATION RATE > 60.0 (>45); GLUCOSE, FASTING 193 MG/DL (74-106); POTASSIUM SERUM 3.5 MMOL/L (3.5-5.1); SODIUM LEVEL 125 MMOL/L (136-145)
[2023-10-15 19:43] LABS: BLOOD UREA NITROGEN 6 MG/DL (9-23); CARBON DIOXIDE LEVEL 27 MMOL/L (20-31); CHLORIDE LEVEL 95 MMOL/L (98-107); CREATININE FOR GFR 0.44 MG/DL (0.55-1.30); GLOMERULAR FILTRATION RATE > 60.0 (>45); GLUCOSE, FASTING 120 MG/DL (74-106); POTASSIUM SERUM 3.4 MMOL/L (3.5-5.1); SODIUM LEVEL 126 MMOL/L (136-145)
[2023-10-15] MEDS: KCL 10MEQ/100ML SWI (KRUN) 10 MEQ in IV 1 EA IV ONE (22:30)
[2023-10-15] MEDS: LORazepam 2 MG/ML 1ML VIAL IV ONE (23:11)
[2023-10-16] VITALS (10 sets, daily range): BP systolic 111–126; BP diastolic 55–66; TEMP 97.2–98.4; O2SAT 92–100
[2023-10-16 06:18] LABS: ALBUMIN 1.9 G/DL (3.2-5.2); ALKALINE PHOSPHATASE 100 U/L (46-116); ALT/SGPT 34 U/L (7.0-40); AST/SGOT 80 U/L (<34); BILIRUBIN,TOTAL 0.5 MG/DL (0.3-1.2); BLOOD UREA NITROGEN 7 MG/DL (9-23); CALCIUM LEVEL 8.1 MG/DL (8.3-10.6); CARBON DIOXIDE LEVEL 27 MMOL/L (20-31); CHLORIDE LEVEL 96 MMOL/L (98-107); CREATININE FOR GFR 0.49 MG/DL (0.55-1.30); GLOMERULAR FILTRATION RATE > 60.0 (>45); GLUCOSE, FASTING 99 MG/DL (74-106); MAGNESIUM LEVEL 1.7 MG/DL (1.8-2.4); PHOSPHORUS LEVEL 1.5 MG/DL (2.4-5.1); POTASSIUM SERUM 3.3 MMOL/L (3.5-5.1); SODIUM LEVEL 128 MMOL/L (136-145); TOTAL PROTEIN 4.5 G/DL (5.7-8.2)
[2023-10-16] MEDS: MAG SULF 1GM/100ML (MAG RUN) 1 GM in IV 1 EA IV ONE (08:03)
[2023-10-16] MEDS ORDERED: MAG SULF 1GM/100ML (MAG RUN) 1 GM in IV 1 EA IV SCH (08:55)
[2023-10-16] MEDS ORDERED: POTASSIUM PHOSPHATE INJ 15 MMOL in D5W 250 ML IV SCH (08:55)
[2023-10-16] MEDS: KCL 10MEQ/100ML SWI (KRUN) 10 MEQ in IV 1 EA IV SCH (10:00)
[2023-10-16] MEDS: POTASSIUM PHOSPHATE INJ 30 MMOL in D5W 500 ML IV ONE (10:23)
[2023-10-16] MEDS: fentaNYL 100 MCG/2 ML INJECTION IV ONE (12:25)
[2023-10-16] MEDS ORDERED: FLEET ENEMA PR PRN (16:30)
[2023-10-16] MEDS ORDERED: BISACODYL 10MG SUPP PR PRN (16:30)
[2023-10-16] MEDS ORDERED: ONDANSETRON 4MG 2ML VIAL IV PRN (16:30)
[2023-10-16] MEDS ORDERED: ATROPINE SULFATE 1% OPHTH SOLN 2ML BTL SL PRN (16:30)
[2023-10-16] MEDS: MORPHINE 2 MG/ML 1ML VIAL IV PRN (18:13)
[2023-10-16] MEDS: LORazepam 2 MG/ML 1ML VIAL IV PRN (23:28)
[2023-10-17] MEDS: MORPHINE 10MG/0.5ML ORAL CONCENTRATE SOLUTION U/D SL PRN ×2 (08:56→11:40)
[2023-10-17] MEDS ORDERED: MORPHINE 10MG/0.5ML ORAL CONCENTRATE SOLUTION U/D SL PRN (10:15)
[2023-10-17] MEDS: MORPHINE 2 MG/ML 1ML VIAL IV PRN (12:09)
[2023-10-17] MEDS: LORazepam 2 MG/ML 1ML VIAL IV PRN (12:24)
[2023-10-18] MEDS: MORPHINE 10MG/0.5ML ORAL CONCENTRATE SOLUTION U/D SL PRN (12:43)
[2023-10-18] MEDS: LORazepam 1 MG TAB PO PRN (16:11)
[2023-10-19] MEDS: SCOPOLAMINE 1MG TRANSDERMAL PATCH TOP PRN (06:16)
[2023-10-19] MEDS: MORPHINE 10MG/0.5ML ORAL CONCENTRATE SOLUTION U/D SL PRN (13:21)
== END 2023-10-20 10:55 | disposition expired | DRG 133 ==
LOC: M ED 17:52 → M ED INP 19:10 → M ICU 20:01 → M MSPAV 10-16 18:23
PROVIDERS: ADMIT Internal Medicine Pulmonary Disease; ATTEND Internal Medicine
PROC: 5A1945Z Respiratory Ventilation, 24-96 Consecutive Hours (ICD-10-PCS; 2023-10-13)
PROC: 0BH17EZ Insertion of Endotracheal Airway into Trachea, Via Natural or Artificial Opening (ICD-10-PCS; 2023-10-13)
PROC: B246ZZZ Ultrasonography of Right and Left Heart (ICD-10-PCS; principal; 2023-10-14)
DX: J96.01 Acute respiratory failure with hypoxia (principal); I21.4 Non-ST elevation (NSTEMI) myocardial infarction; G93.41 Metabolic encephalopathy; J18.9 Pneumonia, unspecified organism; J44.0 Chronic obstructive pulmonary disease with (acute) lower respiratory infection; I95.9 Hypotension, unspecified; I27.20 Pulmonary hypertension, unspecified; I24.9 Acute ischemic heart disease, unspecified; C34.90 Malignant neoplasm of unspecified part of unspecified bronchus or lung; R13.10 Dysphagia, unspecified; J45.901 Unspecified asthma with (acute) exacerbation; E87.1 Hypo-osmolality and hyponatremia; E83.42 Hypomagnesemia; E83.39 Other disorders of phosphorus metabolism; C14.0 Malignant neoplasm of pharynx, unspecified; F17.210 Nicotine dependence, cigarettes, uncomplicated; Z86.16 Personal history of COVID-19; Z90.79 Acquired absence of other genital organ(s); E87.6 Hypokalemia; Z79.82 Long term (current) use of aspirin; Z11.52 Encounter for screening for COVID-19; Z66 Do not resuscitate